=== PATIENT | male | born 1965 | race Caucasian/White ===

== ENCOUNTER 2020-08-20 12:48 | Emergency (ER) | payer MEDICAID ==
[~2020-08-20] VITALS: Ht 177.8 cm; Wt 86.4 kg
[2020-08-20 12:54] VITALS: BP 156/101
--- NOTE | 2020-08-20 12:56 | NUR ---
Patient seen and assessed by provider.
== END 2020-08-20 13:16 ==
LOC: ER 12:49
DX: F10.129 Alcohol abuse with intoxication, unspecified (principal); Z72.89 Other problems related to lifestyle; Z88.1 Allergy status to other antibiotic agents; Z88.8 Allergy status to other drugs, medicaments and biological substances; V89.2XXA Person injured in unspecified motor-vehicle accident, traffic, initial encounter; Y93.89 Activity, other specified; Y92.89 Other specified places as the place of occurrence of the external cause; Y99.8 Other external cause status; Y90.9 Presence of alcohol in blood, level not specified
CPT/HCPCS: 99283

== ENCOUNTER 2020-08-28 16:07 | Emergency (ER) | payer MEDICAID ==
[~2020-08-28] VITALS: Ht 177.8 cm; Wt 81.8 kg
[2020-08-28 16:12] VITALS: BP 121/83
[2020-08-28] MEDS ORDERED: HYDR-3972 PO (16:40)
== END 2020-08-28 16:51 | disposition home or self-care (01) ==
LOC: ER 16:07
DX: M75.32 Calcific tendinitis of left shoulder (principal); M25.512 Pain in left shoulder; E78.00 Pure hypercholesterolemia, unspecified; G89.29 Other chronic pain; F32.9 Major depressive disorder, single episode, unspecified; Z72.89 Other problems related to lifestyle; Z88.1 Allergy status to other antibiotic agents; Z88.8 Allergy status to other drugs, medicaments and biological substances; Z79.899 Other long term (current) drug therapy
CPT/HCPCS: 73030; 99283

== ENCOUNTER 2021-01-13 15:07 | Emergency (ER) | payer MEDICAID ==
[~2021-01-13] VITALS: Ht 177.8 cm; Wt 84.6 kg
[2021-01-13 15:28] VITALS: BP 150/98
== END 2021-01-13 17:44 | disposition home or self-care (01) ==
LOC: ER 15:07
DX: J06.9 Acute upper respiratory infection, unspecified (principal); E78.00 Pure hypercholesterolemia, unspecified; G89.29 Other chronic pain; Z72.89 Other problems related to lifestyle; Z86.16 Personal history of COVID-19; Z88.8 Allergy status to other drugs, medicaments and biological substances; Z88.1 Allergy status to other antibiotic agents
CPT/HCPCS: 87081; 87880; 99283

== ENCOUNTER 2021-04-02 13:03 | Emergency (ER) | payer MEDICAID ==
[~2021-04-02] VITALS: Ht 177.8 cm; Wt 81.8 kg
[2021-04-02 13:20] VITALS: BP 99/62
[2021-04-02] MEDS ORDERED: CEPH-585 PO (13:40)
== END 2021-04-02 13:57 ==
LOC: ER 13:04
DX: S01.511A Laceration without foreign body of lip, initial encounter (principal); E78.00 Pure hypercholesterolemia, unspecified; G89.29 Other chronic pain; F32.9 Major depressive disorder, single episode, unspecified; Z72.89 Other problems related to lifestyle; Z88.8 Allergy status to other drugs, medicaments and biological substances; Z88.1 Allergy status to other antibiotic agents; Z79.2 Long term (current) use of antibiotics; X58.XXXA Exposure to other specified factors, initial encounter; Y93.89 Activity, other specified; Y92.89 Other specified places as the place of occurrence of the external cause; Y99.8 Other external cause status
CPT/HCPCS: 99283

== ENCOUNTER 2021-04-02 15:07 | Emergency (ER) | payer MEDICAID ==
[~2021-04-02] VITALS: Ht 177.8 cm; Wt 81.8 kg
[~2021-04-02 15:07] MED LIST: CEPH-585 PO
[2021-04-02 15:29] VITALS: BP 122/72
[2021-04-02 15:57] LABS: BASOPHILS % (AUTO) 0.3 % (0-1); EOSINOPHILS % (AUTO) 0.1 % (0-6); HEMATOCRIT 45.4 % (42.0-52.0); HEMOGLOBIN 15.5 g/dl (14.0-17.9); LYMPHOCYTES # (AUTO) 0.9 X10'3 (1.1-4.8); LYMPHOCYTES % (AUTO) 10.3 % (21-51); MEAN CORPUSCULAR HEMOGLOBIN 35.3 PG (27.0-31.0); MEAN CORPUSCULAR HGB CONC 34.2 g/dL (33.0-36.5); MEAN CORPUSCULAR VOLUME 103.1 FL (78-98); MONOCYTES # (AUTO) 0.8 X10'3 (0-0.9); MONOCYTES % (AUTO) 8.4 % (2-12); NEUTROPHILS # (AUTO) 7.3 X10'3 (1.8-7.7); NEUTROPHILS % (AUTO) 80.9 % (42-75); PLATELET COUNT 193 X10'3 (140-440); RED CELL DISTRIBUTION WIDTH 15.6 % (11.5-14.5)
[2021-04-02 16:05] LABS: ALBUMIN 3.9 G/DL (3.4-5.0); ALBUMIN/GLOBULIN RATIO 1.1 (1.1-1.5); ANION GAP 19 (8-16); ASPARTATE AMINO TRANSFERASE 74 U/L (10-37); BILIRUBIN,TOTAL 0.8 MG/DL (0.1-1.0); BLOOD UREA NITROGEN 23 MG/DL (7-18); BUN/CREATININE RATIO 9.8 (5.4-32.0); CHLORIDE 105 MMOL/L (99-107); CREATININE 2.34 MG/DL (0.60-1.10); GLUCOSE 55 MG/DL (70-104); POTASSIUM 5.2 MMOL/L (3.5-5.1); SODIUM 143 MMOL/L (135-145); TOTAL PROTEIN 7.3 G/DL (6.4-8.2); eGFR 29 ML/MIN
[2021-04-02 16:06] LABS: ALANINE AMINOTRANSFERASE 50 U/L (12-78); ALKALINE PHOSPHATASE 167 IU/L (46-116)
== END 2021-04-02 16:41 | disposition home or self-care (01) ==
LOC: ER 15:08
DX: N18.9 Chronic kidney disease, unspecified (principal); R07.81 Pleurodynia; G89.29 Other chronic pain; E78.00 Pure hypercholesterolemia, unspecified; F32.9 Major depressive disorder, single episode, unspecified; Z72.89 Other problems related to lifestyle; Z88.8 Allergy status to other drugs, medicaments and biological substances; Z88.1 Allergy status to other antibiotic agents; Z79.2 Long term (current) use of antibiotics
CPT/HCPCS: 36415; 71045; 80053; 84145; 85025; 99284

== ENCOUNTER 2021-06-30 18:11 | Inpatient (IN) | payer MEDICAID ==
[~2021-06-30] VITALS: Ht 177.8 cm; Wt 79.5 kg
[2021-06-30] MEDS ORDERED: metoprolol tartrate 1mg/ml inj IV ONE (18:25)
[2021-06-30 18:50] LABS: BASOPHILS % (AUTO) 0.4 % (0-1); EOSINOPHILS % (AUTO) 0.8 % (0-6); HEMATOCRIT 41.4 % (42.0-52.0); HEMOGLOBIN 13.9 g/dl (14.0-17.9); LYMPHOCYTES # (AUTO) 0.3 X10'3 (1.1-4.8); LYMPHOCYTES % (AUTO) 6.1 % (21-51); MEAN CORPUSCULAR HGB CONC 33.6 g/dL (33.0-36.5); MEAN CORPUSCULAR VOLUME 104.2 FL (78-98); MEAN PLATELET VOLUME 7.7 FL (7.4-10.4); MONOCYTES # (AUTO) 0.6 X10'3 (0-0.9); MONOCYTES % (AUTO) 10.6 % (2-12); NEUTROPHILS # (AUTO) 4.5 X10'3 (1.8-7.7); NEUTROPHILS % (AUTO) 82.1 % (42-75); PLATELET COUNT 148 X10'3 (140-440); RED BLOOD COUNT 3.97 X10'6 (4.70-6.10); RED CELL DISTRIBUTION WIDTH 13.7 % (11.5-14.5); WHITE BLOOD COUNT 5.5 X10'3 (4.5-11.0)
--- NOTE | 2021-06-30 18:51 | NUR ---
CALLED PHARMACY WE ARE OUT OF STOCK ON LOPRESSOR IV. THEY WILL FILL OUT MEDICATION AND BRING IT TO ED.
[2021-06-30 19:13] LABS: ALANINE AMINOTRANSFERASE 45 U/L (12-78); ALBUMIN 3.3 G/DL (3.4-5.0); ALBUMIN/GLOBULIN RATIO 1.1 (1.1-1.5); ANION GAP 7 (8-16); ASPARTATE AMINO TRANSFERASE 62 U/L (10-37); BILIRUBIN,TOTAL 0.5 MG/DL (0.1-1.0); BLOOD UREA NITROGEN 13 MG/DL (7-18); BUN/CREATININE RATIO 9.5 (5.4-32.0); CALCIUM 8.7 MG/DL (8.5-10.1); CHLORIDE 111 MMOL/L (99-107); CREATININE 1.37 MG/DL (0.60-1.10); GLUCOSE 123 MG/DL (70-104); POTASSIUM 3.1 MMOL/L (3.5-5.1); SODIUM 143 MMOL/L (135-145); TOTAL CARBON DIOXIDE 25.5 MMOL/L (24-32); TOTAL PROTEIN 6.4 G/DL (6.4-8.2); eGFR 54 ML/MIN
[2021-06-30] MEDS ORDERED: POTASSIUM BICARB 20meq eff tab 20 MEQ TABLET.EFF PO ONE ×2 (19:25→20:25)
[2021-06-30] MEDS ORDERED: normal saline 1000ML IV soln IV ONE (19:25)
[2021-06-30] MEDS ORDERED: potassium Cl 10 mEq/100mL bag IV ONE (19:25)
[2021-06-30] MEDS ORDERED: iohexol 350MG/ML 100ml bottle IV ONE (19:26)
[2021-06-30] MEDS ORDERED: magnesium 2GM in 50ml NS 50 ML IV PRN (20:10)
[2021-06-30] MEDS ORDERED: potassium Cl 20 mEq SR tablet PO PRN ×2 (20:10)
[2021-06-30] MEDS ORDERED: nitroGLYCERIN 0.4mg SUBLingual tab SL PRN (20:10)
[2021-06-30] MEDS ORDERED: magnesium 4gm in 100ml NS 100 ML IV PRN (20:10)
[2021-06-30] MEDS ORDERED: magnesium Cl slow-release 64mg tablet PO PRN (20:10)
[2021-06-30] MEDS ORDERED: regadenoson 0.4mg/5ml syringe IV PRN (20:10)
[2021-06-30] MEDS ORDERED: potassium CL 10mEq/100ml bag 100 ML IV PRN (20:10)
[2021-06-30] MEDS ORDERED: PERFLUTREN PROTEIN-A MICROSPHR (Optison) 0.22 MG/ML 3ML VIAL IV ONE (20:10)
[2021-06-30] MEDS ORDERED: lisinopril 10 MG tablet PO ONE (20:10)
[2021-06-30] MEDS ORDERED: metoprolol tartrate 1mg/ml inj IV PRN (20:10)
[2021-06-30] MEDS ORDERED: ondansetron/PF 4mg/2ml inj IV PRN (20:10)
[2021-06-30] MEDS ORDERED: aminophylline 250mg/10ml inj. IV PRN (20:10)
[2021-06-30 20:53] LABS: POTASSIUM 3.9 MMOL/L (3.5-5.1)
--- NOTE | 2021-06-30 20:58 | NUR ---
REPORTED CRITICAL TROPONIN VALUE TO DR WITT, DR WITT ORDERED A STAT EKG AND NEW MEDS. HE WILL PUT IN ORDERS FOR MEDS. YEHUDA IS CURRENTLY DOING EKG.
[2021-06-30] MEDS ORDERED: heparin 10,000 units/1 ML INJ IV ONE (21:00)
[2021-06-30] MEDS ORDERED: heparin 25,000 UNIT/250ml bag 250 ML IV SCH (21:00)
[2021-06-30] MEDS ORDERED: heparin 10,000 units/1 ML INJ IV PRN ×2 (21:00→21:10)
[2021-06-30] MEDS ORDERED: diltiazem-NS 100mg/100ml 100 ML IV ONE (21:15)
[2021-06-30] MEDS ORDERED: diltiazem 5mg/ml 5ml inj. IV ONE (21:15)
[2021-06-30 21:21] LABS: APTT 23 SECONDS (22-32)
[2021-06-30] MEDS: metoprolol tartrate 1mg/ml inj IV SCH ×4 (21:30→23:46)
--- NOTE | 2021-06-30 22:30 | NUR ---
SPOKE TO DR WITT PT'S HEART RATE IS IMPROVED WITH DILTIAZEM. HE HAVE VERBAL ORDER TO DC AMIODARONE MEDICATION.
[2021-06-30] MEDS ORDERED: amiodarone in dextrose, iso-osm 150mg/100ml bag IV ONE (22:35)
[2021-06-30] MEDS ORDERED: amiodarone 150mg/dext, iso-os 100 ML IV ONE (22:35)
[2021-06-30] MEDS ORDERED: amiodarone/D5 360MG/200ML BAG 200 ML IV SCH (22:35)
[2021-06-30] MEDS ORDERED: VENL75CA61 PO (22:37)
[2021-06-30] MEDS ORDERED: CHOL20003 PO (22:37)
[2021-06-30] MEDS ORDERED: VENL150C58 PO (22:37)
[2021-06-30] MEDS ORDERED: TOPI50TA24 PO (22:37)
[2021-06-30] MEDS ORDERED: IBUP-1985 PO (22:37)
[2021-06-30] MEDS ORDERED: HYDR-3927 PO (22:37)
[2021-06-30] MEDS ORDERED: PROP40TA72 PO (22:37)
[2021-06-30] MEDS ORDERED: NALT50TA PO (22:37)
[2021-06-30] MEDS ORDERED: amiodarone 450 MG in Dext 5% 250ml IV soln IV SCH (22:45)
[2021-07-01] MEDS: metoprolol succinate 25mg (24-HOUR) SR. Tablet PO SCH ×2 (00:10→12:55)
[2021-07-01] MEDS: temazepam 15mg capsule PO PRN (00:10)
[2021-07-01 01:55] VITALS: BP 147/99
[2021-07-01 02:30] VITALS: BP 147/90
[2021-07-01] MEDS: acetaminophen 325mg tablet PO PRN ×2 (03:09→17:07)
[2021-07-01 06:00] VITALS: BP 136/89
[2021-07-01] MEDS ORDERED: amiodarone 450 MG in Dext 5% 250ml IV soln IV SCH (06:00)
[2021-07-01 07:17] LABS: BASOPHILS % (AUTO) 0.8 % (0-1); EOSINOPHILS # (AUTO) 0.1 X10'3 (0-0.9); EOSINOPHILS % (AUTO) 2.8 % (0-6); HEMATOCRIT 38.4 % (42.0-52.0); LYMPHOCYTES # (AUTO) 0.9 X10'3 (1.1-4.8); LYMPHOCYTES % (AUTO) 24.7 % (21-51); MEAN CORPUSCULAR HEMOGLOBIN 35.3 PG (27.0-31.0); MEAN CORPUSCULAR HGB CONC 33.7 g/dL (33.0-36.5); MEAN CORPUSCULAR VOLUME 104.8 FL (78-98); MEAN PLATELET VOLUME 7.9 FL (7.4-10.4); MONOCYTES # (AUTO) 0.5 X10'3 (0-0.9); MONOCYTES % (AUTO) 13.1 % (2-12); NEUTROPHILS # (AUTO) 2.1 X10'3 (1.8-7.7); NEUTROPHILS % (AUTO) 58.6 % (42-75); PLATELET COUNT 130 X10'3 (140-440); RED BLOOD COUNT 3.67 X10'6 (4.70-6.10); RED CELL DISTRIBUTION WIDTH 13.5 % (11.5-14.5); WHITE BLOOD COUNT 3.6 X10'3 (4.5-11.0)
[2021-07-01 07:58] LABS: ALBUMIN 3.1 G/DL (3.4-5.0); ANION GAP 8 (8-16); BLOOD UREA NITROGEN 12 MG/DL (7-18); BUN/CREATININE RATIO 10.6 (5.4-32.0); CALCIUM 8.3 MG/DL (8.5-10.1); CHLORIDE 113 MMOL/L (99-107); CHOL/HDL RATIO 2.4 (0.00-4.99); CHOLESTEROL 169 MG/DL (0-200); CREATININE 1.13 MG/DL (0.60-1.10); GLUCOSE 74 MG/DL (70-104); HDL CHOLESTEROL 69 MG/DL (35-60); LDL CHOLESTEROL 77 MG/DL (50-100); POTASSIUM 4.1 MMOL/L (3.5-5.1); SODIUM 143 MMOL/L (135-145); TRIGLYCERIDES 35 MG/DL (20-135); eGFR 67 ML/MIN
[2021-07-01] MEDS: K and/or MAG REPLACEMENT MC SCH ×2 (08:00→20:00)
[2021-07-01] MEDS: hydrALAZINE 20mg/ml inj. IV SCH ×3 (08:29→21:02)
[2021-07-01] MEDS ORDERED: hydrOXYzine 25 MG tablet PO PRN (10:05)
[2021-07-01 11:00] VITALS: BP_SYST 103; BP_SYST 153; BP_DIAS 100; BP_DIAS 76
[2021-07-01] MEDS: docusate sod 100mg capsule PO SCH ×2 (12:55→20:00)
[2021-07-01] MEDS: venlafaxine XR 75mg capsule (Q24H) PO SCH (15:42)
--- NOTE | 2021-07-01 16:54 | NUR ---
heparin drip stopped for cardiac cath. to be done within the hour
[2021-07-01] MEDS ORDERED: LIDOcaine/PRILOcaine 5gm cream TP ONE (17:00)
[2021-07-01 17:04] LABS: APTT 35 SECONDS (22-32)
--- NOTE | 2021-07-01 17:51 | NUR ---
Mr Estrada has been assessed as indicated. He has been noted to be both pleasant and cooperative. He has successfully been treated for a headache x1. He completed the resting portion of stress test. He is slated to complete the exercise portion tomorrow. He has been on Cardizem gtt as well as heparin gtt. the heparin was found to be therapeutic with the 1st check this shift. It has been stopped at this time in preperation for a cardiac cath that he will have this evening. Dr Morales saw him at the bedside and stated that he will access his wrist area, He has been prepped for the procedure. The bag of IV NS has been prepped and ready. he will continue to be monitored.
[2021-07-01 18:00] VITALS: BP 124/83
--- NOTE | 2021-07-01 18:15 | NUR ---
Problems reprioritized. Patient report given, questions answered & plan of care reviewed with ALEKSANDR MEDELLIN.
[2021-07-01] MEDS ORDERED: verapamil 2.5 mg/ml inj IV ONE (18:32)
[2021-07-01] MEDS ORDERED: nitroGLYCERIN-Tridil 50MG/D5W 250 ML IV ONE (18:32)
[2021-07-01] MEDS ORDERED: midazolam 1 mg/ML 2ml injection ONE (18:33)
[2021-07-01] MEDS ORDERED: heparin 1,000unit/ml 10ml vial 10 ML ONE (18:33)
[2021-07-01] MEDS ORDERED: fentaNYL/PF 50MCG/1 ML 2ML syringe ONE (18:33)
[2021-07-01] MEDS ORDERED: iohexol 350MG/ML 100ml bottle IV ONE (18:34)
[2021-07-01] MEDS ORDERED: LIDOcaine 1% (10mg/ml)w/preservative injection 20ml MDV ONE (18:34)
[2021-07-01] MEDS: topiramate 25mg tablet PO SCH (20:57)
[2021-07-01] MEDS: propranolol 40mg tablet PO SCH (20:58)
[2021-07-01 22:00] VITALS: BP 124/93
[2021-07-02 02:00] VITALS: BP 118/82
[2021-07-02] MEDS: hydrALAZINE 20mg/ml inj. IV SCH ×2 (02:00→08:54)
[2021-07-02] MEDS: acetaminophen 325mg tablet PO PRN ×2 (03:32→19:25)
[2021-07-02 06:00] VITALS: BP 142/99
[2021-07-02 07:16] LABS: EOSINOPHILS # (AUTO) 0.1 X10'3 (0-0.9); EOSINOPHILS % (AUTO) 2.7 % (0-6); HEMATOCRIT 38.7 % (42.0-52.0); HEMOGLOBIN 13.2 g/dl (14.0-17.9); LYMPHOCYTES # (AUTO) 0.6 X10'3 (1.1-4.8); LYMPHOCYTES % (AUTO) 18.1 % (21-51); MEAN CORPUSCULAR HEMOGLOBIN 35.9 PG (27.0-31.0); MEAN CORPUSCULAR VOLUME 105.6 FL (78-98); MEAN PLATELET VOLUME 7.8 FL (7.4-10.4); MONOCYTES # (AUTO) 0.4 X10'3 (0-0.9); MONOCYTES % (AUTO) 12.5 % (2-12); NEUTROPHILS # (AUTO) 2.3 X10'3 (1.8-7.7); NEUTROPHILS % (AUTO) 65.7 % (42-75); PLATELET COUNT 147 X10'3 (140-440); RED BLOOD COUNT 3.67 X10'6 (4.70-6.10); RED CELL DISTRIBUTION WIDTH 13.7 % (11.5-14.5); WHITE BLOOD COUNT 3.5 X10'3 (4.5-11.0)
[2021-07-02 07:47] LABS: ALBUMIN 3.2 G/DL (3.4-5.0); ANION GAP 9 (8-16); BLOOD UREA NITROGEN 11 MG/DL (7-18); CALCIUM 8.6 MG/DL (8.5-10.1); CHLORIDE 112 MMOL/L (99-107); CREATININE 0.92 MG/DL (0.60-1.10); GLUCOSE 84 MG/DL (70-104); SODIUM 141 MMOL/L (135-145); eGFR 85 ML/MIN
[2021-07-02] MEDS: docusate sod 100mg capsule PO SCH ×2 (08:00→19:21)
[2021-07-02] MEDS: K and/or MAG REPLACEMENT MC SCH ×2 (08:00→19:18)
[2021-07-02] MEDS ORDERED: venlafaxine XR 75mg capsule (Q24H) PO SCH (08:00)
[2021-07-02] MEDS: venlafaxine XR 75mg capsule (Q24H) PO SCH (08:54)
[2021-07-02] MEDS: naltrexone 50mg tablet PO SCH (08:54)
[2021-07-02] MEDS: topiramate 25mg tablet PO SCH ×2 (08:54→19:21)
[2021-07-02] MEDS: propranolol 40mg tablet PO SCH ×2 (08:55→19:22)
[2021-07-02] MEDS: diltiazem 30mg tablet PO SCH ×3 (10:49→19:22)
[2021-07-02 11:00] VITALS: BP 125/90
[2021-07-02 15:00] VITALS: BP 120/76
--- NOTE | 2021-07-02 17:53 | NUR ---
Mr Naqvi has been assessed as indicated. He has been noted to be both pleasant and cooperative. He continues to deny pain. he does c/o constipation at this time. Cardizem drip has been stopped and he has been transitioned to PO. The stress test was cancelled. The area to his right wrist that was used for cardiac cath access has no redness swelling or tenderness. He has no s/s of distress or discomfort.
[2021-07-02 18:00] VITALS: BP 133/96
[2021-07-02] MEDS ORDERED: magnesium hydroxide 30ml (MOM) UD suspension PO ONE (18:20)
--- NOTE | 2021-07-02 18:30 | NUR ---
Problems reprioritized. Patient report given, questions answered & plan of care reviewed with DARLEEN .
[2021-07-02] MEDS: temazepam 15mg capsule PO PRN (19:21)
[2021-07-02 22:00] VITALS: BP 133/85
[2021-07-03] MEDS: diltiazem 30mg tablet PO SCH ×2 (02:35→08:59)
[2021-07-03 06:00] VITALS: BP 132/88
[2021-07-03 07:25] LABS: BASOPHILS % (AUTO) 0.8 % (0-1); EOSINOPHILS # (AUTO) 0.1 X10'3 (0-0.9); EOSINOPHILS % (AUTO) 3.2 % (0-6); HEMATOCRIT 38.5 % (42.0-52.0); HEMOGLOBIN 13.3 g/dl (14.0-17.9); LYMPHOCYTES # (AUTO) 0.7 X10'3 (1.1-4.8); LYMPHOCYTES % (AUTO) 17.1 % (21-51); MEAN CORPUSCULAR HEMOGLOBIN 35.6 PG (27.0-31.0); MEAN CORPUSCULAR HGB CONC 34.5 g/dL (33.0-36.5); MEAN PLATELET VOLUME 7.7 FL (7.4-10.4); MONOCYTES # (AUTO) 0.6 X10'3 (0-0.9); MONOCYTES % (AUTO) 13.1 % (2-12); NEUTROPHILS # (AUTO) 2.8 X10'3 (1.8-7.7); NEUTROPHILS % (AUTO) 65.8 % (42-75); PLATELET COUNT 167 X10'3 (140-440); RED BLOOD COUNT 3.73 X10'6 (4.70-6.10); RED CELL DISTRIBUTION WIDTH 13.3 % (11.5-14.5); WHITE BLOOD COUNT 4.3 X10'3 (4.5-11.0)
[2021-07-03] MEDS: docusate sod 100mg capsule PO SCH (08:00)
[2021-07-03 08:18] LABS: ALBUMIN 3.2 G/DL (3.4-5.0); ANION GAP 8 (8-16); BLOOD UREA NITROGEN 12 MG/DL (7-18); BUN/CREATININE RATIO 11.9 (5.4-32.0); CALCIUM 8.3 MG/DL (8.5-10.1); CHLORIDE 111 MMOL/L (99-107); CREATININE 1.01 MG/DL (0.60-1.10); GLUCOSE 85 MG/DL (70-104); MAGNESIUM 2.2 MG/DL (1.5-2.4); POTASSIUM 3.9 MMOL/L (3.5-5.1); SODIUM 140 MMOL/L (135-145); TOTAL CARBON DIOXIDE 21.3 MMOL/L (24-32); eGFR 76 ML/MIN
[2021-07-03] MEDS: topiramate 25mg tablet PO SCH (08:59)
[2021-07-03] MEDS: propranolol 40mg tablet PO SCH (08:59)
[2021-07-03] MEDS: naltrexone 50mg tablet PO SCH (08:59)
[2021-07-03] MEDS ORDERED: DILT240C90 PO (09:00)
[2021-07-03] MEDS: venlafaxine XR 75mg capsule (Q24H) PO SCH (09:00)
[2021-07-03] MEDS ORDERED: ATOR10TA PO (09:00)
[2021-07-03] MEDS ORDERED: ASPI81TA52 PO (09:00)
[2021-07-03 11:00] VITALS: BP 96/60
--- NOTE | 2021-07-03 12:16 | NUR ---
Initial: Pt admit dx SOB, chest pain, NSTEMI, and ETHAN per EMR. Pt PO intake 100% x 4 heart healthy meals and meeting estimated nutrient needs. Recommend routine thiamine and folate given hx of EtOH and liberalizing to regular diet as lipid panel WNL if MD agreeable. Pending BM and given one time dose of MoM 07/02. No nutrition intervention at this time. Will continue to monitor. Addendum: 07/03/21 at 1216 by Daksha Heredia Pill Packer DEBRA Amended: Links added. Addendum: 07/03/21 at [address] I have reviewed assessment by event marketing intern
--- NOTE | 2021-07-03 15:20 | NUR ---
Mr Estrada has been assessed as indicated. he has been DC to [facility]. IV access was removed. DC instructions were reviwed all questions answered Medications sent to [facility] on [address]. He wa aware of and compliant with the plan to DC home. he had no s/s of distress or discomfort upon DC. He was picked up in a private vehicle. He was escorted to [facility] front door via WC escorted by staff
== END 2021-07-03 15:00 | disposition home or self-care (01) | DRG 190 ==
LOC: ER 18:12 → OBSVTOIN 20:13 → UNDOADMOB 20:13 → INTOOBSV 20:13 → ED HOLD 20:13 → OBSVTOIN 20:30 → PCU 3S 20:30 → ED HOLD 07-01 02:00 → PCU 3S 07-01 02:00
PROVIDERS: ADMIT Internal Medicine; ATTEND Family Medicine
PROC: B32T1ZZ Computerized Tomography (CT Scan) of Left Pulmonary Artery using Low Osmolar Contrast (ICD-10-PCS; 2021-06-30)
PROC: B3201ZZ Computerized Tomography (CT Scan) of Thoracic Aorta using Low Osmolar Contrast (ICD-10-PCS; 2021-06-30)
PROC: B32S1ZZ Computerized Tomography (CT Scan) of Right Pulmonary Artery using Low Osmolar Contrast (ICD-10-PCS; 2021-06-30)
PROC: 4A023N7 Measurement of Cardiac Sampling and Pressure, Left Heart, Percutaneous Approach (ICD-10-PCS; principal; 2021-07-01)
PROC: B2111ZZ Fluoroscopy of Multiple Coronary Arteries using Low Osmolar Contrast (ICD-10-PCS; 2021-07-01)
PROC: 4A02XM4 Measurement of Cardiac Total Activity, External Approach (ICD-10-PCS; 2021-07-02)
PROC: 3E033HZ Introduction of Radioactive Substance into Peripheral Vein, Percutaneous Approach (ICD-10-PCS; 2021-07-02)
DX: I25.10 Atherosclerotic heart disease of native coronary artery without angina pectoris (principal); I21.A1 Myocardial infarction type 2; I48.92 Unspecified atrial flutter; I48.91 Unspecified atrial fibrillation; E78.00 Pure hypercholesterolemia, unspecified; G43.909 Migraine, unspecified, not intractable, without status migrainosus; F10.20 Alcohol dependence, uncomplicated; Z20.822 Contact with and (suspected) exposure to COVID-19; Z60.2 Problems related to living alone; G89.29 Other chronic pain; R00.0 Tachycardia, unspecified; N18.9 Chronic kidney disease, unspecified; I12.9 Hypertensive chronic kidney disease with stage 1 through stage 4 chronic kidney disease, or unspecified chronic kidney disease; F31.9 Bipolar disorder, unspecified; Z79.82 Long term (current) use of aspirin; Z79.899 Other long term (current) drug therapy; Z88.8 Allergy status to other drugs, medicaments and biological substances
CPT/HCPCS: 36415; 71045; 71275; 78451; 80048; 80053; 80061; 83735; 83880; 84132; 84484; 85025; 85379; 85610; 85730; 87635; 93005; 93306; 93458; 96374; 99152; 99291; A4620; A5120; A9500; C1769; C1894; C9803; G0378; J0360; J1644; J2250; J3010; J3480; J3490; J7030; Q0177; Q9967

== ENCOUNTER 2021-09-06 12:51 | Emergency (ER) | payer MEDICAID ==
[~2021-09-06] VITALS: Ht 177.8 cm; Wt 70.0 kg
[~2021-09-06 12:51] MED LIST changes: +ATOR10TA PO; -CEPH-585 PO; +CHOL20003 PO; +DILT240C90 PO; +HYDR-3927 PO; +IBUP-1985 PO; +NALT50TA PO; +PROP40TA72 PO; +TOPI50TA24 PO; +VENL150C58 PO; +VENL75CA61 PO
[2021-09-06 13:41] LABS: EOSINOPHILS # (AUTO) 0.1 X10'3 (0-0.9); LYMPHOCYTES # (AUTO) 0.5 X10'3 (1.1-4.8); MEAN CORPUSCULAR HEMOGLOBIN 34.7 PG (27.0-31.0); MEAN CORPUSCULAR HGB CONC 34.7 g/dL (33.0-36.5); MONOCYTES # (AUTO) 0.3 X10'3 (0-0.9)
[2021-09-06 13:43] LABS: BASOPHILS % (AUTO) 0.7 % (0-1); HEMATOCRIT 41.6 % (42.0-52.0); HEMOGLOBIN 14.4 g/dl (14.0-17.9); LYMPHOCYTES % (AUTO) 9.4 % (21-51); MEAN PLATELET VOLUME 7.5 FL (7.4-10.4); MONOCYTES % (AUTO) 5.9 % (2-12); NEUTROPHILS # (AUTO) 4.8 X10'3 (1.8-7.7); PLATELET COUNT 185 X10'3 (140-440); RED BLOOD COUNT 4.16 X10'6 (4.70-6.10); RED CELL DISTRIBUTION WIDTH 13.6 % (11.5-14.5); WHITE BLOOD COUNT 5.8 X10'3 (4.5-11.0)
[2021-09-06 13:58] LABS: ALANINE AMINOTRANSFERASE 139 U/L (12-78); ALBUMIN 3.7 G/DL (3.4-5.0); ALBUMIN/GLOBULIN RATIO 1.2 (1.1-1.5); ALKALINE PHOSPHATASE 127 IU/L (46-116); ANION GAP 14 (8-16); ASPARTATE AMINO TRANSFERASE 102 U/L (10-37); BILIRUBIN,TOTAL 0.5 MG/DL (0.1-1.0); BLOOD UREA NITROGEN 18 MG/DL (7-18); BUN/CREATININE RATIO 14.5 (5.4-32.0); CALCIUM 8.5 MG/DL (8.5-10.1); CHLORIDE 109 MMOL/L (99-107); CREATININE 1.24 MG/DL (0.60-1.10); GLUCOSE 197 MG/DL (70-104); POTASSIUM 3.6 MMOL/L (3.5-5.1); SODIUM 145 MMOL/L (135-145); TOTAL CARBON DIOXIDE 22.5 MMOL/L (24-32); TOTAL PROTEIN 6.9 G/DL (6.4-8.2); eGFR 60 ML/MIN
[2021-09-06] MEDS ORDERED: normal saline 1000ML IV soln IVB ONE ×2 (16:25→18:15)
[2021-09-06] MEDS ORDERED: LORazepam 2 mg/ml vial IV ONE ×2 (16:25→18:15)
[2021-09-06] MEDS ORDERED: iohexol 350MG/ML 100ml bottle IV ONE (16:30)
--- NOTE | 2021-09-06 17:14 | NUR ---
pt to ct.
[2021-09-06] MEDS ORDERED: gabapentin 300mg capsule PO ONE (18:15)
--- NOTE | 2021-09-06 18:57 | NUR ---
Pt. pink, alert, reading a book. PIV site c/d/i s complication or adverse. IVF bolus started as ordered, infusing well without complication. Offered pt blanket, declined. Pt laying supine, bed in lowest position, wheels locked, rail 2/2 up, call hardin in reach. Offered pt po fluids, pt declined offer. Offered anything else, pt declined offer.
[2021-09-06] MEDS ORDERED: magnesium oxide 400mg tablet PO ONE (19:35)
[2021-09-06] MEDS ORDERED: thiamine 100mg tablet PO ONE (19:35)
[2021-09-06] MEDS ORDERED: phenobarbital inj 260 MG in normal saline 100ml IV soln 98 ML IV ONE (19:35)
--- NOTE | 2021-09-06 19:48 | NUR ---
Pt pink, no acute/resp distress. IV pheno ordered from pharm. PIV site c/d/i s complication or adverse. PIV flushed well with 10cc NS.
--- NOTE | 2021-09-06 21:00 | NUR ---
Pt pink, no acute/resp distress. PIV site c/d/i s complication or adverse reaction.
[2021-09-06] MEDS ORDERED: phenobarbital inj 130 MG in normal saline 100ml IV soln 100 ML IV ONE (21:10)
[2021-09-06 21:39] LABS: URINE AMPHETAMINE SCREEN NEGATIVE (Neg); URINE BARBITUATE SCREEN POSITIVE (Neg); URINE BENZODIAZEPINES SCREEN NEGATIVE (Neg); URINE CANNABINOID SCREEN NEGATIVE (Neg); URINE COCAINE SCREEN NEGATIVE (Neg); URINE METHADONE SCREEN NEGATIVE (Neg); URINE OPIATE SCREEN NEGATIVE (Neg); URINE PHENCYCLIDINE SCREEN NEGATIVE (Neg)
--- NOTE | 2021-09-06 22:20 | NUR ---
PIV site c/d/i s complication or adverse. IV med infusing well without complication. Offered pt blanket, declined. Pt laying supine, bed in lowest position, wheels locked, rail 2/2 up, call hardin in reach. Offered pt po fluids, pt declined offer. Offered anything else, pt declined offer.
--- NOTE | 2021-09-07 | NUR ---
PIV site c/d/i s complication or adverse. IV med infusing well without complication. Offered pt blanket, declined. Pt laying supine, bed in lowest position, wheels locked, rail 2/2 up, call hardin in reach
[2021-09-07] MEDS ORDERED: diltiazem 5mg/ml 5ml inj. IV ONE ×2 (00:05→00:50)
[2021-09-07] MEDS ORDERED: metoprolol succinate 25mg (24-HOUR) SR. Tablet PO ONE (00:05)
[2021-09-07] MEDS ORDERED: amiodarone 150mg/dext, iso-os 100 ML IV ONE ×2 (01:50→02:40)
--- NOTE | 2021-09-07 02:52 | NUR ---
amiodarone bolus dose given. pt heart rate initially down to 110's but rhythm is still irregular.
--- NOTE | 2021-09-07 03:56 | NUR ---
Pt agrees with d/c plan. Denies further questions. Steady pt gait. PIV removed fully intact s complication or adverse.
[2021-09-07 03:57] VITALS: BP 168/92
== END 2021-09-07 03:59 | disposition home or self-care (01) ==
LOC: ER 12:51
DX: I48.92 Unspecified atrial flutter (principal); F10.20 Alcohol dependence, uncomplicated; R06.02 Shortness of breath; E78.00 Pure hypercholesterolemia, unspecified; G89.29 Other chronic pain; F32.A Depression, unspecified; Z72.89 Other problems related to lifestyle; Z88.8 Allergy status to other drugs, medicaments and biological substances; Z88.1 Allergy status to other antibiotic agents; Z79.899 Other long term (current) drug therapy; Y90.9 Presence of alcohol in blood, level not specified
CPT/HCPCS: 36415; 71045; 71275; 80053; 80305; 83735; 83880; 84443; 84484; 85025; 93005; 96361; 96374; 96375; 96376; 99285; J0282; J2060; J2560; J3490; J7030; Q9967

== ENCOUNTER 2022-04-27 19:54 | Inpatient (IN) | payer MEDICAID ==
[~2022-04-27] VITALS: Ht 177.8 cm; Wt 86.4 kg
[2022-04-27] MEDS ORDERED: normal saline 1000ML IV soln IVB ONE (20:05)
[2022-04-27] MEDS ORDERED: folic acid 1mg/0.2ml inj IV ONE (20:05)
[2022-04-27] MEDS ORDERED: thiamine 100mg/ml 2ml inj. IV ONE (20:05)
[2022-04-27] MEDS ORDERED: haloperidol lactate 5mg/ml inj IM ONE (20:05)
[2022-04-27] MEDS ORDERED: LIDOcaine 2% 10ml TOPICAL JELLY (Urojet) TP ONE ×2 (20:25→23:05)
[2022-04-27 20:59] LABS: BASOPHILS % (AUTO) 0.7 % (0-1); EOSINOPHILS % (AUTO) 0.5 % (0-6); HEMATOCRIT 46.6 % (42.0-52.0); HEMOGLOBIN 15.7 g/dl (14.0-17.9); LYMPHOCYTES # (AUTO) 1.2 X10'3 (1.1-4.8); LYMPHOCYTES % (AUTO) 20.1 % (21-51); MEAN CORPUSCULAR HEMOGLOBIN 36.2 PG (27.0-31.0); MEAN CORPUSCULAR HGB CONC 33.6 g/dL (33.0-36.5); MEAN CORPUSCULAR VOLUME 107.5 FL (78-98); MEAN PLATELET VOLUME 6.6 FL (7.4-10.4); MONOCYTES # (AUTO) 0.2 X10'3 (0-0.9); MONOCYTES % (AUTO) 2.8 % (2-12); NEUTROPHILS # (AUTO) 4.5 X10'3 (1.8-7.7); NEUTROPHILS % (AUTO) 75.9 % (42-75); PLATELET COUNT 185 X10'3 (140-440); RED BLOOD COUNT 4.33 X10'6 (4.70-6.10); RED CELL DISTRIBUTION WIDTH 13.8 % (11.5-14.5); WHITE BLOOD COUNT 5.9 X10'3 (4.5-11.0)
--- NOTE | 2022-04-27 21:10 | NUR ---
Artic Sun and Bare Hugger placed on patient - temp 32.6
[2022-04-27 21:22] LABS: ALANINE AMINOTRANSFERASE 101 U/L (12-78); ALBUMIN 3.9 G/DL (3.4-5.0); ALBUMIN/GLOBULIN RATIO 1.1 (1.1-1.5); ALKALINE PHOSPHATASE 236 IU/L (46-116); ASPARTATE AMINO TRANSFERASE 121 U/L (10-37); BLOOD UREA NITROGEN 16 MG/DL (7-18); BUN/CREATININE RATIO 12.2 (5.4-32.0); CALCIUM 8.4 MG/DL (8.5-10.1); CREATINE KINASE 468 U/L (39-308); CREATININE 1.31 MG/DL (0.60-1.10); GLUCOSE 98 MG/DL (70-104); TOTAL CARBON DIOXIDE 19.8 MMOL/L (24-32); TOTAL PROTEIN 7.6 G/DL (6.4-8.2); eGFR 56 ML/MIN
[2022-04-27 21:35] LABS: CLARITY,URINE CLEAR (Clear); COLOR,URINE YELLOW (Yellow); GLUCOSE, URINE NEGATIVE (Neg); KETONES,URINE 15 mg/dl (Neg); LEUKOCYTE ESTERASE ,URINE NEGATIVE (Neg); NITRITES, URINE NEGATIVE (Neg); OCCULT BLOOD,URINE NEGATIVE (Neg); PROTEIN,URINE NEGATIVE (Neg)
[2022-04-27 21:40] LABS: UA COLLECTION TYPE FOLEY CATH
[2022-04-27 21:40] LABS: ANION GAP 18 (8-16); CHLORIDE 103 MMOL/L (99-107); POTASSIUM 4.5 MMOL/L (3.5-5.1); SODIUM 141 MMOL/L (135-145)
[2022-04-27 21:43] LABS: URINE AMPHETAMINE SCREEN NEGATIVE (Neg); URINE BARBITUATE SCREEN NEGATIVE (Neg); URINE BENZODIAZEPINES SCREEN NEGATIVE (Neg); URINE CANNABINOID SCREEN NEGATIVE (Neg); URINE COCAINE SCREEN NEGATIVE (Neg); URINE METHADONE SCREEN NEGATIVE (Neg); URINE OPIATE SCREEN NEGATIVE (Neg); URINE PHENCYCLIDINE SCREEN NEGATIVE (Neg)
[2022-04-27 21:43] LABS: ETHANOL 0.545 GM/DL (0.0-0.010)
[2022-04-27] MEDS ORDERED: LORazepam 2 mg/ml vial IV ONE (22:50)
[2022-04-27] MEDS ORDERED: acetaminophen 325mg tablet PO PRN (23:05)
[2022-04-27] MEDS ORDERED: dextrose 50%-water 50ml dispensing syringe IV PRN (23:05)
[2022-04-27] MEDS ORDERED: sodium phosphate inj. 15 MMOL in dextrose 5%-water 250 ML IV PRN (23:05)
[2022-04-27] MEDS ORDERED: magnesium 2GM in 50ml NS 50 ML IV PRN (23:05)
[2022-04-27] MEDS ORDERED: sodium phosphate inj. 30 MMOL in dextrose 5%-water 250 ML IV PRN (23:05)
[2022-04-27] MEDS ORDERED: haloperidol 5mg tablet PO PRN (23:05)
[2022-04-27] MEDS ORDERED: magnesium 4gm in 100ml NS 100 ML IV PRN (23:05)
[2022-04-27] MEDS ORDERED: magnesium hydroxide 30ml (MOM) UD suspension PO PRN (23:05)
[2022-04-27] MEDS ORDERED: Neutra Phos packet PO PRN (23:05)
[2022-04-27 23:17] LABS: ALANINE AMINOTRANSFERASE 95 U/L (12-78); ALBUMIN 3.6 G/DL (3.4-5.0); ALKALINE PHOSPHATASE 226 IU/L (46-116); ANION GAP 18 (8-16); ASPARTATE AMINO TRANSFERASE 120 U/L (10-37); BILIRUBIN,TOTAL 1.1 MG/DL (0.1-1.0); BLOOD UREA NITROGEN 15 MG/DL (7-18); BUN/CREATININE RATIO 12.5 (5.4-32.0); CALCIUM 7.7 MG/DL (8.5-10.1); CHLORIDE 107 MMOL/L (99-107); GLUCOSE 95 MG/DL (70-104); MAGNESIUM 2.2 MG/DL (1.5-2.4); PHOSPHORUS 3.9 MG/DL (2.3-4.5); POTASSIUM 4.1 MMOL/L (3.5-5.1); SODIUM 142 MMOL/L (135-145); TOTAL CARBON DIOXIDE 17.4 MMOL/L (24-32); TOTAL PROTEIN 7.2 G/DL (6.4-8.2); eGFR 62 ML/MIN
[2022-04-27 23:31] LABS: APTT 32 SECONDS (22-32)
[2022-04-27 23:38] LABS: BASOPHILS % (AUTO) 0.3 % (0-1); EOSINOPHILS % (AUTO) 0.1 % (0-6); HEMATOCRIT 44.9 % (42.0-52.0); HEMOGLOBIN 15.1 g/dl (14.0-17.9); LYMPHOCYTES # (AUTO) 0.6 X10'3 (1.1-4.8); LYMPHOCYTES % (AUTO) 11.4 % (21-51); MEAN CORPUSCULAR HEMOGLOBIN 36.4 PG (27.0-31.0); MEAN CORPUSCULAR HGB CONC 33.6 g/dL (33.0-36.5); MEAN CORPUSCULAR VOLUME 108.5 FL (78-98); MEAN PLATELET VOLUME 7.2 FL (7.4-10.4); MONOCYTES # (AUTO) 0.1 X10'3 (0-0.9); MONOCYTES % (AUTO) 2.1 % (2-12); NEUTROPHILS # (AUTO) 4.3 X10'3 (1.8-7.7); NEUTROPHILS % (AUTO) 86.1 % (42-75); PLATELET COUNT 166 X10'3 (140-440); RED BLOOD COUNT 4.14 X10'6 (4.70-6.10)
[2022-04-28] MEDS: ringers solution, lacted 1,000 ML IV SCH ×2 (00:08→08:39)
--- NOTE | 2022-04-28 01:39 | NUR ---
Behavioral restraints removed at 0050. Patient continues to pull at IV lines and Tripp. Order recvd to place non-behavioral restraints per Software Applications Designer.
[2022-04-28] MEDS: LORazepam 2 mg/ml vial IV PRN ×11 (02:48→23:45)
--- NOTE | 2022-04-28 06:10 | NUR ---
Artic Sun removed - Bear Hugger still on patient.
[2022-04-28] MEDS: thiamine 100mg/ml 2ml inj. IV SCH ×3 (07:38→21:38)
[2022-04-28] MEDS: folic acid 1mg/0.2ml inj IV SCH (08:29)
[2022-04-28] MEDS: K and/or MAG REPLACEMENT MC SCH (09:00)
[2022-04-28 09:18] LABS: RED BLOOD COUNT 3.84 X10'6 (4.70-6.10); WHITE BLOOD COUNT 10.9 X10'3 (4.5-11.0)
[2022-04-28 09:19] LABS: BASOPHILS % (AUTO) 0.3 % (0-1); EOSINOPHILS % (AUTO) 0 % (0-6); HEMATOCRIT 43.4 % (42.0-52.0); HEMOGLOBIN 13.8 g/dl (14.0-17.9); LYMPHOCYTES % (AUTO) 4.5 % (21-51); MEAN CORPUSCULAR HEMOGLOBIN 36.1 PG (27.0-31.0); MEAN CORPUSCULAR HGB CONC 31.9 g/dL (33.0-36.5); MEAN CORPUSCULAR VOLUME 113.2 FL (78-98); MEAN PLATELET VOLUME 6.6 FL (7.4-10.4); MONOCYTES % (AUTO) 9.3 % (2-12); NEUTROPHILS % (AUTO) 85.9 % (42-75); PLATELET COUNT 112 X10'3 (140-440); RED CELL DISTRIBUTION WIDTH 14.1 % (11.5-14.5)
[2022-04-28 09:20] LABS: LYMPHOCYTES # (AUTO) 0.5 X10'3 (1.1-4.8); NEUTROPHILS # (AUTO) 9.4 X10'3 (1.8-7.7)
[2022-04-28 09:47] LABS: ALANINE AMINOTRANSFERASE 96 U/L (12-78); ALBUMIN 2.7 G/DL (3.4-5.0); ALBUMIN/GLOBULIN RATIO 0.8 (1.1-1.5); ALKALINE PHOSPHATASE 179 IU/L (46-116); ASPARTATE AMINO TRANSFERASE 168 U/L (10-37); BLOOD UREA NITROGEN 18 MG/DL (7-18); BUN/CREATININE RATIO 14.5 (5.4-32.0); CALCIUM 7.2 MG/DL (8.5-10.1); CHLORIDE 106 MMOL/L (99-107); CREATINE KINASE 731 U/L (39-308); CREATININE 1.24 MG/DL (0.60-1.10); GLUCOSE 82 MG/DL (70-104); MAGNESIUM 2.3 MG/DL (1.5-2.4); PHOSPHORUS 4.6 MG/DL (2.3-4.5); POTASSIUM 4.4 MMOL/L (3.5-5.1); SODIUM 139 MMOL/L (135-145); eGFR 60 ML/MIN
[2022-04-28 10:16] LABS: PLATELET ESTIMATE DECREASED
[2022-04-28 10:24] LABS: BILIRUBIN,TOTAL 1.1 MG/DL (0.1-1.0)
[2022-04-28 10:32] LABS: ANION GAP 22 (8-16); TOTAL CARBON DIOXIDE 10.6 MMOL/L (24-32)
--- NOTE | 2022-04-28 11:36 | NUR ---
Dr. Pop notified of pt CO2 10.6. Orders received for lactic acid level, ABG, procalcitonin STAT draw. Dr. Pop to consult with Dr. Clark. Pt temperature WNL Aman Hugger removed.
[2022-04-28 12:30] LABS: ABG BASE EXCESS -13.6 mmol/L (-2.0-2.0); ABG HCO3 13.3 mmol/L (22.0-26.0); ABG OXYGEN SATURATION 91.5 % (94-97); ABG PCO2 (T) 35.7 mmHg (35.0-48.0); ABG PO2 (T) 74.8 mmHg (75.0-100.0); ALLEN'S TEST POSITIVE; FCOHb 0.6 % (0.0-3.9); FLOW 3 L/min; FMetHb 0.4 % (0.0-1.5); FO2Hb 90.6 % (94-97); PATIENT TEMPERATURE 37.7; TOTAL HEMOGLOBIN 13.8 G/dl (14.0-17.9)
[2022-04-28] MEDS: haloperidol lactate 5mg/ml inj IM PRN ×3 (13:31→23:45)
--- NOTE | 2022-04-28 14:30 | NUR ---
DR CHILDRESS AT BEDSIDE. DISCUSSION WITH THIS RN ABOUT DOWNGRADING PT TO PCU
[2022-04-28] MEDS ORDERED: sodium bicarbonate (8.4%) inj. 150 MEQ in dextrose 5%-water 1,000 ML IV SCH (16:25)
[2022-04-28] MEDS ORDERED: WATER IV SCH (16:52)
[2022-04-28] MEDS ORDERED: DEXTROSE 10% IV SCH (16:52)
[2022-04-28] MEDS ORDERED: SODIUM BICARBONATE IV SCH (16:52)
--- NOTE | 2022-04-28 17:10 | NUR ---
DR GOMEZ AT BEDSIDE. DISCUSSED PT ELEVATED TEMP, ORDERS RECEIVED FOR RECTAL TYLENOL. PT INCREASINGLY AGITATED DESPITE Q1 ATIVAN AND Q4 HALDOL. OKAYED GIVING NEXT DOSE OF IM HALDOL NOW.
[2022-04-28] MEDS: sodium bicarbonate (8.4%) inj. 150 MEQ in dextrose 5%-water 850 ML IV SCH ×2 (17:12→23:03)
[2022-04-28] MEDS ORDERED: acetaminophen 120MG suppository, rectal RC ONE (17:15)
[2022-04-28] MEDS ORDERED: acetaminophen 650mg rectal suppository RC ONE (17:20)
[2022-04-28 17:31] LABS: ALANINE AMINOTRANSFERASE 114 U/L (12-78); ALBUMIN 2.9 G/DL (3.4-5.0); ALBUMIN/GLOBULIN RATIO 0.9 (1.1-1.5); ALKALINE PHOSPHATASE 175 IU/L (46-116); ANION GAP 17 (8-16); ASPARTATE AMINO TRANSFERASE 192 U/L (10-37); BILIRUBIN,TOTAL 0.9 MG/DL (0.1-1.0); BLOOD UREA NITROGEN 16 MG/DL (7-18); BUN/CREATININE RATIO 12.6 (5.4-32.0); CALCIUM 7.4 MG/DL (8.5-10.1); CHLORIDE 108 MMOL/L (99-107); CREATININE 1.27 MG/DL (0.60-1.10); GLUCOSE 89 MG/DL (70-104); POTASSIUM 4.4 MMOL/L (3.5-5.1); SODIUM 143 MMOL/L (135-145); TOTAL CARBON DIOXIDE 18.2 MMOL/L (24-32); eGFR 58 ML/MIN
[2022-04-28 23:30] VITALS: BP 129/65
[2022-04-29] MEDS: LORazepam 2 mg/ml vial IV PRN ×7 (01:09→21:21)
[2022-04-29 02:18] VITALS: BP 152/78
[2022-04-29] MEDS: haloperidol lactate 5mg/ml inj IM PRN ×2 (03:30→07:40)
[2022-04-29 06:00] VITALS: BP 153/85
[2022-04-29 06:59] LABS: BASOPHILS % (AUTO) 0.1 % (0-1); EOSINOPHILS % (AUTO) 0.1 % (0-6); HEMATOCRIT 33.8 % (42.0-52.0); HEMOGLOBIN 11.8 g/dl (14.0-17.9); LYMPHOCYTES # (AUTO) 0.2 X10'3 (1.1-4.8); LYMPHOCYTES % (AUTO) 4.7 % (21-51); MEAN CORPUSCULAR HEMOGLOBIN 36.6 PG (27.0-31.0); MEAN CORPUSCULAR HGB CONC 34.8 g/dL (33.0-36.5); MEAN PLATELET VOLUME 6.4 FL (7.4-10.4); MONOCYTES # (AUTO) 0.5 X10'3 (0-0.9); MONOCYTES % (AUTO) 13.9 % (2-12); NEUTROPHILS # (AUTO) 3.2 X10'3 (1.8-7.7); NEUTROPHILS % (AUTO) 81.2 % (42-75); PLATELET COUNT 61 X10'3 (140-440); RED BLOOD COUNT 3.22 X10'6 (4.70-6.10); RED CELL DISTRIBUTION WIDTH 13.9 % (11.5-14.5); WHITE BLOOD COUNT 3.9 X10'3 (4.5-11.0)
[2022-04-29] MEDS: thiamine 100mg/ml 2ml inj. IV SCH ×3 (07:05→21:00)
[2022-04-29] MEDS: folic acid 1mg/0.2ml inj IV SCH (07:06)
[2022-04-29] MEDS: sodium bicarbonate (8.4%) inj. 150 MEQ in dextrose 5%-water 850 ML IV SCH (07:07)
[2022-04-29] MEDS: K and/or MAG REPLACEMENT MC SCH (08:00)
[2022-04-29 08:30] LABS: ALANINE AMINOTRANSFERASE 92 U/L (12-78); ALBUMIN 2.7 G/DL (3.4-5.0); ALBUMIN/GLOBULIN RATIO 1.1 (1.1-1.5); ALKALINE PHOSPHATASE 136 IU/L (46-116); ANION GAP 10 (8-16); ASPARTATE AMINO TRANSFERASE 165 U/L (10-37); BILIRUBIN,TOTAL 1.4 MG/DL (0.1-1.0); BLOOD UREA NITROGEN 11 MG/DL (7-18); BUN/CREATININE RATIO 9.3 (5.4-32.0); CALCIUM 7.3 MG/DL (8.5-10.1); CHLORIDE 105 MMOL/L (99-107); CREATININE 1.18 MG/DL (0.60-1.10); GLUCOSE 111 MG/DL (70-104); MAGNESIUM 1.6 MG/DL (1.5-2.4); SODIUM 143 MMOL/L (135-145); TOTAL CARBON DIOXIDE 27.9 MMOL/L (24-32); TOTAL PROTEIN 5.2 G/DL (6.4-8.2); eGFR 64 ML/MIN
[2022-04-29 08:38] LABS: CREATINE KINASE 1557 U/L (39-308)
[2022-04-29 08:43] LABS: PHOSPHORUS 0.9 MG/DL (2.3-4.5)
[2022-04-29] MEDS: POTASSIUM BICARB 20meq eff tab 20 MEQ TABLET.EFF PO PRN ×3 (09:59→18:24)
--- NOTE | 2022-04-29 10:23 | NUR ---
PAGE DR. GOMEZ FOR CRITICAL LABS: POTASSIUM- 3.0; PHOSP- 0.9 AND CREATININE- 1.8. CALL BACK PENDING. Addendum: 04/29/22 at 1034 by Antoinette Kunz RN DR. GOMEZ ON UNIT AND UPDATED ON LABS. NEW ORDER FOR IV FLUIDS ALSO RECEIVED.
[2022-04-29] MEDS: normal saline 1000ml 1,000 ML IV SCH ×2 (10:39→21:18)
[2022-04-29] MEDS ORDERED: FOLI1TAB27 PO (12:49)
[2022-04-29] MEDS ORDERED: AMIO200T61 PO (12:49)
[2022-04-29] MEDS ORDERED: ATOR10TA70 PO (12:51)
[2022-04-29 13:30] VITALS: BP 159/84
[2022-04-29 16:58] VITALS: BP 134/72
--- NOTE | 2022-04-29 17:34 | NUR ---
SMITH REMOVED AT 1730 PER PROTOCOL. PATIENT TOLERATED WELL. WILL UPDATE ONCOMING NURSE POST VOID TO BE BY 23:30
--- NOTE | 2022-04-29 17:49 | NUR ---
PATIENT'S ELIAS LEES WS PRESENT AT THE BEDSIDE. SPOUSE TOOK ALL OF PATIENTS BELONGINGS HOME WITH HER- CLOTHES, SHOES, WALLET AND KEYS. SERENE KISER WAS ALSO PRESENT TO WITNESS.
[2022-04-29] MEDS ORDERED: APIX5TAB3 PO (18:52)
[2022-04-29 19:36] VITALS: BP 145/97
[2022-04-29 23:24] VITALS: BP 161/71
[2022-04-29] MEDS: ondansetron/PF 4mg/2ml inj IV PRN (23:32)
[2022-04-29] MEDS: morphine 2 MG/ML inj. syringe IV PRN (23:33)
[2022-04-30] MEDS: LORazepam 1 MG tablet PO PRN ×3 (02:48→20:35)
[2022-04-30 05:49] VITALS: BP 169/94
[2022-04-30 07:08] LABS: BASOPHILS % (AUTO) 0.4 % (0-1); EOSINOPHILS # (AUTO) 0.1 X10'3 (0-0.9); EOSINOPHILS % (AUTO) 2.3 % (0-6); LYMPHOCYTES # (AUTO) 0.2 X10'3 (1.1-4.8); LYMPHOCYTES % (AUTO) 9.1 % (21-51); MEAN CORPUSCULAR HEMOGLOBIN 36.4 PG (27.0-31.0); MEAN CORPUSCULAR HGB CONC 34.3 g/dL (33.0-36.5); MEAN CORPUSCULAR VOLUME 105.9 FL (78-98); MEAN PLATELET VOLUME 7.4 FL (7.4-10.4); MONOCYTES # (AUTO) 0.3 X10'3 (0-0.9); MONOCYTES % (AUTO) 11.6 % (2-12); NEUTROPHILS # (AUTO) 2.1 X10'3 (1.8-7.7); NEUTROPHILS % (AUTO) 76.6 % (42-75); RED BLOOD COUNT 3.02 X10'6 (4.70-6.10); RED CELL DISTRIBUTION WIDTH 13.6 % (11.5-14.5); WHITE BLOOD COUNT 2.7 X10'3 (4.5-11.0)
[2022-04-30] MEDS: normal saline 1000ml 1,000 ML IV SCH ×2 (07:24→16:35)
[2022-04-30] MEDS: thiamine 100mg/ml 2ml inj. IV SCH ×3 (07:24→20:35)
[2022-04-30] MEDS: K and/or MAG REPLACEMENT MC SCH (08:00)
[2022-04-30 08:19] LABS: BLOOD UREA NITROGEN 6 MG/DL (7-18); BUN/CREATININE RATIO 7.1 (5.4-32.0); CHLORIDE 105 MMOL/L (99-107); CREATININE 0.84 MG/DL (0.60-1.10); GLUCOSE 85 MG/DL (70-104); PHOSPHORUS 1.3 MG/DL (2.3-4.5); POTASSIUM 3.5 MMOL/L (3.5-5.1); SODIUM 137 MMOL/L (135-145); eGFR > 90 ML/MIN
[2022-04-30 08:20] LABS: PLATELET COUNT 49 X10'3 (140-440)
[2022-04-30 08:23] LABS: ALANINE AMINOTRANSFERASE 66 U/L (12-78); ALBUMIN 2.4 G/DL (3.4-5.0); ALBUMIN/GLOBULIN RATIO 0.9 (1.1-1.5); ALKALINE PHOSPHATASE 120 IU/L (46-116); ANION GAP 9 (8-16); ASPARTATE AMINO TRANSFERASE 106 U/L (10-37); BILIRUBIN,TOTAL 1.4 MG/DL (0.1-1.0); CALCIUM 7.4 MG/DL (8.5-10.1); CREATINE KINASE 1043 U/L (39-308); MAGNESIUM 1.4 MG/DL (1.5-2.4); TOTAL CARBON DIOXIDE 22.7 MMOL/L (24-32); TOTAL PROTEIN 5.1 G/DL (6.4-8.2)
[2022-04-30 08:24] LABS: PLATELET ESTIMATE DECREASED; TOTAL CELLS COUNTED 100
[2022-04-30] MEDS ORDERED: magnesium Cl slow-release 64mg tablet PO PRN (09:35)
[2022-04-30] MEDS: folic acid 1mg/0.2ml inj IV SCH (10:06)
[2022-04-30 11:00] VITALS: BP 156/85
[2022-04-30] MEDS: LORazepam 2 mg/ml vial IV PRN ×3 (12:43→17:33)
--- NOTE | 2022-04-30 15:59 | NUR ---
sent to Dr. Church [id number] Sean: need home med list meds.bp is 172/105. 1 mg ativan not touching his withdrawal symptoms. adjust the ativan iv to 2mg? He is requiring it every hour. A sitter is definitely needed. order for librium? Thank you. Julienne MEDELLIN [id number]
[2022-04-30] MEDS: morphine 2 MG/ML inj. syringe IV PRN (16:25)
[2022-04-30 18:00] VITALS: BP 160/89
[2022-04-30] MEDS: haloperidol lactate 5mg/ml inj IM PRN (20:35)
[2022-04-30] MEDS: acetaminophen 325mg tablet PO PRN (20:41)
[2022-04-30 22:00] VITALS: BP 160/86
--- NOTE | 2022-05-01 | NUR ---
Pt. is awake alert unrestrained oriented and cooperative. Wants to go home. He spoke with daughter on the phone, she will pick him up tomorrow at 530 pm if released by MD. Pt. has 2 peripheral IVs intact voids per urinal yellow clear large amt and sometimes by BSC. No Complaints post Tripp removal. Medicated for anxiety x 2 and headache x1. Plans to go home with daughter today if cleared by MD.
[2022-05-01] MEDS: normal saline 1000ml 1,000 ML IV SCH ×3 (02:35→19:32)
[2022-05-01 02:47] VITALS: BP 166/93
[2022-05-01] MEDS: acetaminophen 325mg tablet PO PRN ×2 (02:58→21:42)
[2022-05-01] MEDS: LORazepam 1 MG tablet PO PRN ×4 (02:58→19:32)
[2022-05-01 06:00] VITALS: BP 181/97
[2022-05-01] MEDS ORDERED: folic acid 1mg tablet PO SCH (08:00)
--- NOTE | 2022-05-01 08:28 | NUR ---
sent to dr. smith: [id number] Sean: bp is 181/97. need order for bp medication please. thank you. Julienne MEDELLIN [id number]
[2022-05-01 09:34] LABS: MAGNESIUM 1.7 MG/DL (1.5-2.4); POTASSIUM 3.4 MMOL/L (3.5-5.1)
[2022-05-01] MEDS: thiamine 100mg tablet PO SCH (10:33)
[2022-05-01] MEDS: morphine 2 MG/ML inj. syringe IV PRN ×2 (10:38→19:43)
[2022-05-01 11:00] VITALS: BP 151/102
[2022-05-01 11:22] LABS: BASOPHILS % (AUTO) 0.3 % (0-1); EOSINOPHILS # (AUTO) 0.1 X10'3 (0-0.9); EOSINOPHILS % (AUTO) 4.1 % (0-6); HEMATOCRIT 33.2 % (42.0-52.0); HEMOGLOBIN 11.5 g/dl (14.0-17.9); LYMPHOCYTES # (AUTO) 0.3 X10'3 (1.1-4.8); LYMPHOCYTES % (AUTO) 9.9 % (21-51); MEAN CORPUSCULAR HEMOGLOBIN 36.8 PG (27.0-31.0); MEAN CORPUSCULAR HGB CONC 34.5 g/dL (33.0-36.5); MEAN CORPUSCULAR VOLUME 106.5 FL (78-98); MEAN PLATELET VOLUME 7.1 FL (7.4-10.4); MONOCYTES # (AUTO) 0.4 X10'3 (0-0.9); MONOCYTES % (AUTO) 13.7 % (2-12); PLATELET COUNT 60 X10'3 (140-440); RED BLOOD COUNT 3.12 X10'6 (4.70-6.10); RED CELL DISTRIBUTION WIDTH 13.6 % (11.5-14.5); WHITE BLOOD COUNT 2.8 X10'3 (4.5-11.0)
[2022-05-01] MEDS: metoprolol succinate 25mg (24-HOUR) SR. Tablet PO SCH (11:35)
--- NOTE | 2022-05-01 11:36 | NUR ---
Sent to Dr. Solorzano: [id number] Sean: Please add medications from home med list. thank you. Julienne MEDELLIN [id number]
[2022-05-01 11:49] LABS: PLATELET ESTIMATE DECREASED; TOTAL CELLS COUNTED 100
[2022-05-01 11:57] LABS: ALANINE AMINOTRANSFERASE 64 U/L (12-78); ALBUMIN 2.7 G/DL (3.4-5.0); ALBUMIN/GLOBULIN RATIO 0.9 (1.1-1.5); ALKALINE PHOSPHATASE 116 IU/L (46-116); ASPARTATE AMINO TRANSFERASE 71 U/L (10-37); BILIRUBIN,TOTAL 1.3 MG/DL (0.1-1.0); BLOOD UREA NITROGEN 5 MG/DL (7-18); BUN/CREATININE RATIO 5.3 (5.4-32.0); CHLORIDE 107 MMOL/L (99-107); CREATININE 0.95 MG/DL (0.60-1.10); GLUCOSE 127 MG/DL (70-104); TOTAL PROTEIN 5.6 G/DL (6.4-8.2); eGFR 82 ML/MIN
[2022-05-01 12:25] LABS: ANION GAP 8 (8-16); SODIUM 138 MMOL/L (135-145)
[2022-05-01] MEDS: atorvastatin 10mg tablet PO SCH (12:37)
[2022-05-01] MEDS: POTASSIUM BICARB 20meq eff tab 20 MEQ TABLET.EFF PO PRN ×2 (12:37→17:01)
[2022-05-01] MEDS: amiodarone 200mg tablet PO SCH (12:38)
[2022-05-01] MEDS: venlafaxine XR 75mg capsule (Q24H) PO SCH (12:55)
--- NOTE | 2022-05-01 12:59 | NUR ---
Sent to Dr. Solorzano, [id number] Sean: pt smokes 1 1/2 pk of cigarettes/day. order for nicotine patch please? thank you. Julienne MEDELLIN [id number]
[2022-05-01] MEDS: nicotine 21mg patch - 24 hr TD SCH (14:39)
--- NOTE | 2022-05-01 17:05 | NUR ---
Pt states he is going to leave [facility]. I explained to pt that is important for him to stay due to his abnormal lab values and his medications that he is taking here. Pt states he understands but he has medications at home he can take. I explained that the doctor will most likely switch around some of his medications before he leaves, but he states that he will just take his medications at home. Notified Dr. Solorzano. Awaiting a reply.
--- NOTE | 2022-05-01 17:09 | NUR ---
sent to Dr. Solorzano: [id number] Sean: Pt states he is leaving against medical advice. I educated on the reasons why he should stay. He still will leave. Did you want to see him?
--- NOTE | 2022-05-01 17:50 | NUR ---
Sent to [facility]: [id number] Sean: After speaking to pt again. He has decided to stay. Just FYI.
[2022-05-01 18:00] VITALS: BP 167/98
[2022-05-01] MEDS: apixaban 5mg tablet PO SCH (19:31)
[2022-05-01] MEDS: topiramate 25mg tablet PO SCH (19:31)
[2022-05-01] MEDS: ondansetron/PF 4mg/2ml inj IV PRN (19:44)
[2022-05-01 22:00] VITALS: BP 170/96
[2022-05-01] MEDS ORDERED: LORazepam 2 mg/ml vial IV PRN (23:05)
[2022-05-02 02:11] VITALS: BP 152/81
--- NOTE | 2022-05-02 02:16 | NUR ---
Pt. is resting quietly after receiving antianxiety med. Less intentional tremors today. Pt. has a peripheral IV with IV fluids infusing. Pt. is ambulatory to BR gaits steady with one person assist. Looking forward to going home. Plan home with family when medically cleared.
[2022-05-02 06:00] VITALS: BP 167/98
[2022-05-02 07:43] LABS: MAGNESIUM 1.6 MG/DL (1.5-2.4); POTASSIUM 3.8 MMOL/L (3.5-5.1)
[2022-05-02] MEDS ORDERED: folic acid 1mg tablet PO SCH (08:00)
[2022-05-02] MEDS ORDERED: cholecalciferol (vitamin D3) 1,000 unit (25mcg) tablet PO SCH (08:00)
[2022-05-02] MEDS ORDERED: naltrexone 50mg tablet PO SCH (08:00)
[2022-05-02] MEDS: nicotine 21mg patch - 24 hr TD SCH (09:13)
[2022-05-02] MEDS: thiamine 100mg tablet PO SCH (09:14)
[2022-05-02] MEDS: atorvastatin 10mg tablet PO SCH (09:14)
[2022-05-02] MEDS: venlafaxine XR 75mg capsule (Q24H) PO SCH (09:14)
[2022-05-02] MEDS: topiramate 25mg tablet PO SCH (09:14)
[2022-05-02] MEDS: apixaban 5mg tablet PO SCH (09:14)
[2022-05-02] MEDS: amiodarone 200mg tablet PO SCH (09:14)
[2022-05-02] MEDS: metoprolol succinate 25mg (24-HOUR) SR. Tablet PO SCH (09:14)
--- NOTE | 2022-05-02 09:27 | NUR ---
Initial: Pt admit for EtOH intoxication, encephalopathy, hypothermia, and acidosis. Pt on a regular diet and initially eating poorly however up to average 80% PO intake of five most recent meals. Initial poor PO intake is possibly r/t intoxication on admit. Pt receiving routine Thiamine and Folic acid for EtOH hx. LBM 04/30, documented with diarrhea. No nutrition intervention implemented at this time. Will continue to follow and make recommendations as appropriate. Recommendations: 1) Continue regular diet 2) Monitor need for ONS/additional protein 3) Continue routine Thiamine and Folic acid, consider adding MVI d/t EtOH intake with elevated MCV 4) Bowel care PRN 5) Weekly scaled weights Addendum: 05/02/22 at [address] Amended: Links added.
[2022-05-02 11:54] LABS: BASOPHILS % (AUTO) 1.2 % (0-1); EOSINOPHILS # (AUTO) 0.1 X10'3 (0-0.9); EOSINOPHILS % (AUTO) 3.8 % (0-6); HEMATOCRIT 33.3 % (42.0-52.0); HEMOGLOBIN 11.5 g/dl (14.0-17.9); LYMPHOCYTES # (AUTO) 0.4 X10'3 (1.1-4.8); LYMPHOCYTES % (AUTO) 14.4 % (21-51); MEAN CORPUSCULAR HEMOGLOBIN 36.6 PG (27.0-31.0); MEAN CORPUSCULAR HGB CONC 34.4 g/dL (33.0-36.5); MEAN CORPUSCULAR VOLUME 106.4 FL (78-98); MEAN PLATELET VOLUME 7.1 FL (7.4-10.4); MONOCYTES # (AUTO) 0.6 X10'3 (0-0.9); MONOCYTES % (AUTO) 20.1 % (2-12); NEUTROPHILS # (AUTO) 1.8 X10'3 (1.8-7.7); NEUTROPHILS % (AUTO) 60.5 % (42-75); PLATELET COUNT 75 X10'3 (140-440); RED BLOOD COUNT 3.13 X10'6 (4.70-6.10); RED CELL DISTRIBUTION WIDTH 13.4 % (11.5-14.5); WHITE BLOOD COUNT 2.9 X10'3 (4.5-11.0)
[2022-05-02 12:05] LABS: ALANINE AMINOTRANSFERASE 52 U/L (12-78); ALBUMIN 2.8 G/DL (3.4-5.0); ALKALINE PHOSPHATASE 112 IU/L (46-116); ANION GAP 10 (8-16); ASPARTATE AMINO TRANSFERASE 47 U/L (10-37); BILIRUBIN,TOTAL 0.8 MG/DL (0.1-1.0); BLOOD UREA NITROGEN 8 MG/DL (7-18); BUN/CREATININE RATIO 8.8 (5.4-32.0); CALCIUM 8.8 MG/DL (8.5-10.1); CHLORIDE 105 MMOL/L (99-107); CREATININE 0.91 MG/DL (0.60-1.10); GLUCOSE 87 MG/DL (70-104); SODIUM 136 MMOL/L (135-145); TOTAL CARBON DIOXIDE 20.7 MMOL/L (24-32); TOTAL PROTEIN 5.6 G/DL (6.4-8.2); eGFR 86 ML/MIN
[2022-05-02 12:18] LABS: PLATELET ESTIMATE DECREASED; TOTAL CELLS COUNTED 100
[2022-05-02] MEDS ORDERED: METO-395 PO (13:01)
== END 2022-05-02 14:41 | disposition home or self-care (01) | DRG 52 ==
LOC: ER 19:54 → ED HOLD 23:25 → PCU 3S 04-28 21:40
PROVIDERS: ADMIT Internal Medicine Critical Care Medicine; ATTEND Internal Medicine Critical Care Medicine
DX: G92.8 Other toxic encephalopathy (principal); N17.9 Acute kidney failure, unspecified; F10.231 Alcohol dependence with withdrawal delirium; T68.XXXA Hypothermia, initial encounter; G31.2 Degeneration of nervous system due to alcohol; M62.82 Rhabdomyolysis; E83.39 Other disorders of phosphorus metabolism; E87.29 Other acidosis; K70.10 Alcoholic hepatitis without ascites; F32.A Depression, unspecified; F41.9 Anxiety disorder, unspecified; R00.1 Bradycardia, unspecified; E87.6 Hypokalemia; E78.5 Hyperlipidemia, unspecified; R50.9 Fever, unspecified; E78.00 Pure hypercholesterolemia, unspecified; F10.229 Alcohol dependence with intoxication, unspecified; F17.210 Nicotine dependence, cigarettes, uncomplicated; G89.4 Chronic pain syndrome; Y90.8 Blood alcohol level of 240 mg/100 ml or more; K74.60 Unspecified cirrhosis of liver; X31.XXXA Exposure to excessive natural cold, initial encounter; Z78.1 Physical restraint status; Z59.00 Homelessness unspecified; Z88.8 Allergy status to other drugs, medicaments and biological substances; Z79.899 Other long term (current) drug therapy
CPT/HCPCS: 36415; 36600; 70450; 71045; 73080; 73200; 80053; 80305; 80320; 81003; 82009; 82140; 82550; 82803; 82948; 83605; 83735; 84100; 84145; 84443; 84484; 85007; 85008; 85018; 85025; 85610; 85730; 87040; 87081; 93005; 96361; 96372; 96374; 96375; 97116; 97161; 97530; 99291; 99292; A4615; A6212; A6258; G0378; J1630; J2060; J2270; J2405; J3411; J3490; J7030; J7060; J7070; J7120

== ENCOUNTER → 2022-07-29 | Emergency (ER) | payer MEDICAID ==
[~2022-07-29] VITALS: Ht 177.8 cm; Wt 75.9 kg
[~2022-07-29] MED LIST changes: +AMIO200T61 PO; +APIX5TAB3 PO; -ATOR10TA PO; +ATOR10TA70 PO; -DILT240C90 PO; +FOLI1TAB27 PO; +GUAI400T92 PO; -HYDR-3927 PO; +METO-395 PO; +NIRM1TAB PO; -PROP40TA72 PO; +TOPI-253 PO; -TOPI50TA24 PO; -VENL75CA61 PO
[2022-07-29 11:50] VITALS: BP 114/74
== END | disposition home or self-care (01) ==
LOC: ER 11:32
DX: U07.1 COVID-19 (principal); I11.0 Hypertensive heart disease with heart failure; E78.00 Pure hypercholesterolemia, unspecified; F32.A Depression, unspecified; Z88.8 Allergy status to other drugs, medicaments and biological substances; Z88.1 Allergy status to other antibiotic agents; Z88.6 Allergy status to analgesic agent; Z79.899 Other long term (current) drug therapy
CPT/HCPCS: 87811; 99283

== ENCOUNTER 2022-08-25 05:36 | Emergency (ER) | payer MEDICAID ==
[~2022-08-25] VITALS: Ht 177.8 cm; Wt 79.5 kg
[2022-08-25 05:52] VITALS: BP 118/83
== END 2022-08-25 07:20 | disposition left against medical advice (07) ==
LOC: ER 05:37
DX: H57.11 Ocular pain, right eye (principal); Z53.21 Procedure and treatment not carried out due to patient leaving prior to being seen by health care provider
CPT/HCPCS: 99281

== ENCOUNTER 2022-10-23 17:44 | Emergency (ER) | payer MEDICAID ==
[~2022-10-23] VITALS: Ht 177.8 cm; Wt 75.0 kg
[~2022-10-23 17:44] MED LIST changes: +AMI200T PO; -AMIO200T61 PO
[2022-10-23 17:46] VITALS: BP 164/121
[2022-10-23] MEDS ORDERED: AMOX-117 PO (18:07)
[2022-10-23] MEDS ORDERED: bacitracin 15gm ointment TP ONE (18:10)
[2022-10-23] MEDS ORDERED: LIDOcaine 1% 30ml preserv. free vial IJ ONE (18:10)
[2022-10-23] MEDS ORDERED: TETanus/Pertussis (Acell)/Diphther VAC/PF (Tdap-Adult) 0.5ml syringe IMVAC ONE (18:10)
[2022-10-23] MEDS ORDERED: amox tr/potassium clavulanate 875/125mg TAB PO ONE (18:10)
== END 2022-10-23 18:48 ==
LOC: ER 17:45
DX: S31.119A Laceration without foreign body of abdominal wall, unspecified quadrant without penetration into peritoneal cavity, initial encounter (principal); S40.211A Abrasion of right shoulder, initial encounter; E78.00 Pure hypercholesterolemia, unspecified; I25.2 Old myocardial infarction; G89.29 Other chronic pain; F32.9 Major depressive disorder, single episode, unspecified; F10.10 Alcohol abuse, uncomplicated; Z88.8 Allergy status to other drugs, medicaments and biological substances; Z88.1 Allergy status to other antibiotic agents; Z79.899 Other long term (current) drug therapy; Z79.01 Long term (current) use of anticoagulants; W54.0XXA Bitten by dog, initial encounter; Y93.89 Activity, other specified; Y92.89 Other specified places as the place of occurrence of the external cause; Y99.8 Other external cause status; Y90.9 Presence of alcohol in blood, level not specified
CPT/HCPCS: 12032; 90471; 90715; 99284; J7030; A6449

== ENCOUNTER 2024-03-18 11:26 | Emergency (ER) | payer MEDICAID ==
[~2024-03-18] VITALS: Ht 177.8 cm; Wt 70.9 kg
[~2024-03-18 11:26] MED LIST changes: -NALT50TA PO; +NALT50TA5 PO; -TOPI-253 PO; +TOPI-95 PO
[2024-03-18 12:07] VITALS: TEMP 97.4
[2024-03-18 13:01] LABS: EOSINOPHILS # (AUTO) 0.2 X10'3 (0-0.9); EOSINOPHILS % (AUTO) 4.2 % (0-6); HEMATOCRIT 35.6 % (42.0-52.0); HEMOGLOBIN 12.2 g/dl (14.0-17.9); LYMPHOCYTES # (AUTO) 0.6 X10'3 (1.1-4.8); LYMPHOCYTES % (AUTO) 13.3 % (21-51); MEAN CORPUSCULAR HGB CONC 34.4 g/dL (33.0-36.5); MEAN CORPUSCULAR VOLUME 95.9 FL (78-98); MEAN PLATELET VOLUME 7.1 FL (7.4-10.4); MONOCYTES # (AUTO) 0.5 X10'3 (0-0.9); MONOCYTES % (AUTO) 9.5 % (2-12); NEUTROPHILS # (AUTO) 3.4 X10'3 (1.8-7.7); PLATELET COUNT 164 X10'3 (140-440); RED BLOOD COUNT 3.71 X10'6 (4.70-6.10); RED CELL DISTRIBUTION WIDTH 13.5 % (11.5-14.5); WHITE BLOOD COUNT 4.8 X10'3 (4.5-11.0)
[2024-03-18 13:07] LABS: ALBUMIN 3.2 G/DL (3.4-5.0); ANION GAP 3 (8-16); BLOOD UREA NITROGEN 10 MG/DL (7-18); BUN/CREATININE RATIO 9.2 (10.0-20.0); CALCIUM 8.7 MG/DL (8.5-10.1); CHLORIDE 107 MMOL/L (99-107); CREATININE 1.09 MG/DL (0.60-1.10); GLUCOSE 89 MG/DL (70-104); POTASSIUM 3.9 MMOL/L (3.5-5.1); SODIUM 137 MMOL/L (135-145); TOTAL CARBON DIOXIDE 26.7 MMOL/L (24-32); eCRCL 73 ML/MIN; eGFR 69 ML/MIN
[2024-03-18 13:10] LABS: APTT 28 SECONDS (22-32); PROTHROMBIN TIME 10.7 SECONDS (9.0-12.0)
[2024-03-18 14:41] VITALS: BP 126/69; PULSE 53; RESP 14; O2SAT 99
== END 2024-03-18 14:44 | disposition home or self-care (01) ==
LOC: ER 11:27
DX: H53.8 Other visual disturbances (principal); H26.9 Unspecified cataract; E78.00 Pure hypercholesterolemia, unspecified; I25.2 Old myocardial infarction; R79.1 Abnormal coagulation profile; R53.1 Weakness; Z88.1 Allergy status to other antibiotic agents; Z88.6 Allergy status to analgesic agent; Z79.899 Other long term (current) drug therapy
CPT/HCPCS: 36415; 70450; 71045; 80048; 82948; 85025; 85610; 85730; 93005; 99285; J7030

== ENCOUNTER 2024-12-15 18:46 | Inpatient (IN) | payer MEDICAID ==
[~2024-12-15] VITALS: Ht 177.8 cm; Wt 78.3 kg
[~2024-12-15 18:46] MED LIST changes: -AMI200T PO; +AMIO200T76 PO
--- NOTE | 2024-12-15 19:10 | Physician Documentation ---
History of Present Illness ~ Chief Complaint: Palpitations Stated Complaint: ABDOMINAL PAIN Time Seen by MD: 19:02 OK to notify your PCP?: Yes Primary Medical Doctor: NONE Source: patient, RN/MD, EMS, RN notes reviewed, EMS notes reviewed, old records Mode of Arrival: EMS, Stretcher Exam Limitations: no limitations Almonte Bed Addressed? 59 year old male seen in bed 19 with a history of cholecectomy, LA and afib presents to the emergency department for complaints of abdominal pain that has been present for two hours. He states that his pain began while he was on a walk. He states his pain is constant and is unrelated to his atrial flutters. He states that he last ate at 1200 today and denies eating anything unusual that would result in the pain. Patient states he has been experiencing a little vom iting but denies diarrhea.Patient states that he is not currently being followed by a dry cleaner helper. Patient has a CAT scan and was transferred to our facility. Medication Reconciliation Allergies: Coded Allergies: Bacitracin Zinc (Unverified Allergy, Unknown, 07/29/22) bacitracin (Unverified Allergy, Unknown, 07/29/22) gramicidin D (Unverified Allergy, Unknown, 07/29/22) neomycin sulfate (Unverified Allergy, Unknown, 07/29/22) polymyxin B (Unverified Allergy, Unknown, 07/29/22) polymyxin B sulfate (Unverified Allergy, Unknown, 07/29/22) Uncoded Allergies: REMRON (Allergy, Mild, rash, 07/29/22) Scheduled Amiodarone Hcl (Cordarone), 1 TAB PO DAILY, (Reported) Apixaban (Eliquis), 1 TAB PO Q12H, (Reported) Atorvastatin Calcium (Atorvastatin Calcium), 1 TAB PO DAILY, (Reported) Cholecalciferol (Vitamin D3) (Vitamin D3), 1 TAB PO DAILY, (Reported) Diltiazem Hcl (Cardizem Cd), 1 CAP PO DAILY, (Reported) Folic Acid* (Folic Acid*), 1 TAB PO DAILY, (Reported) Ibuprofen (Ibuprofen), 1 TAB PO TID, (Reported) Metoprolol Succinate (Metoprolol Succinate), 25 MG PO DAILY Multivitamin with Folic Acid (Thera Tablet), 1 TAB PO DAILY Naltrexone Hcl (Naltrexone Hcl), 1 TAB PO DAILY, (Reported) Pantoprazole Sodium (PROTONIX tablet), 1 TAB PO DAILY Thiamine HCl (Vitamin B-1), 2 TAB PO DAILY Topiramate (Topiramate), 1 TAB PO BID, (Reported) Venlafaxine Hcl (Venlafaxine Hcl Er), 1 CAP PO DAILY, (Reported) Discontinued Medications Guaifenesin (Guaifenesin), 1 TAB PO Q8H Discontinued Reason: completed med therapy Nirmatrelvir/Ritonavir (Paxlovid Co-Pack (Eua)), 3 EACH PO BID Discontinued Reason: Other Past Medical History Past Medical History: Arrhythmia, High Cholesterol, Myocardial Infarction, Cirrohsis, Chronic Pain, Depression Past Surgical History: noncontributory Alcohol Use: Abuse Drug Use: none Lives In: Home Occupation: employed Review of Systems All Other Systems at this time: Reviewed and Negative ROS As stated above in the HPI, otherwise all systems are reviewed and negative. Physical Exam Vital Signs: RN Vital Signs have been reviewed: Yes, Temperature: 98.6, Source: Temporal, Heart Rate: 93, Respiratory Rate: 15, BP: 98/67, Pulse Oximetry: 95, Weight: 78.350 Pulse Oximetry Reflects: adequate oxygenation Physical Exam General: The patient is well developed, well nourished, nontoxic appearing and is in no acute distress. Skin: [place], warm and dry with no rashes. HEENT: Head was normocephalic and atraumatic. Eyes - pupils equal, round, reactive to light and accommodation. Extraocular movements were intact. Conjunctivae were nonicteric. Ears - bilateral tympanic membranes were normal. The mouth and oropharynx were clear with moist mucous membranes. There were no pharyngeal exudates or erythema. Neck: Supple and nontender. There was no jugular venous distention, lymphadenopathy, thyromegaly or masses. Chest: Clear to auscultation bilaterally without wheezes, rales or rhonchi. No accessory muscle use. No dullness to percussion. Heart: Rate regular and rhythmic. S1, S2. No murmurs. Palpation of the chest wall was normal. No rubs or thrills. Abdomen:Hyperactive bowel sounds, with general abdominal tenderness. No guarding or rebound. No hepatosplenomegaly or palpable masses. Extremities: No cyanosis, clubbing or edema. The patient moves all extremi ties. Pulses were equal and symmetric. Neurologic: Cranial nerves II-XII were intact. Sensation was intact to light touch throughout. Motor strength was 5/5 in all four extremities. Deep tendon reflexes were intact in both upper and lower extremities. Psychologic: The patient was oriented to person, place and time. The patient demonstrated appropriate judgement and insight. Progress Progress Note 2103: A message was left with Dr. Vargas informing him about the patient. 2130: The case was discussed with the hospitalist who was informed on the patient and kindly agreed to admission. Results/Orders Results/Orders Orders - JODIE COOLEY MD Chest,Single View (12/15/24 19:24) Monitor (12/15/24 19:02) Saline Lock (12/15/24:02) Oxygen (12/15/24 19:02) Electrocardiogram (12/15/24 19:02) Ct Abdomen Pelvis (12/15/24 20:13) Page Hospitalist (12/15/24 21:02) Fill Out Med Reconciliation (12/15/24 21:02) Electrocardiogram (12/16/24 ) Completed Orders - JODIE COOLEY MD Chest,Single View (12/15/24 19:24) Cbc/Diff (12/15/24 19:02) BMP (12/15/24 19:02) PBNP (12/15/24 19:02) Electrocardiogram (12/15/24 19:02) Hs Troponin I W Calculations (12/15/24 19:02) Hs Troponin I W Calculations (12/15/24 21:02) Hs Troponin I W Calculations (12/15/24 22:02) MG (12/15/24 19:03) Ethanol (12/15/24 19:03) Lipase (12/15/24 19:02) Pt Inr (12/15/24 19:02) PTT (12/15/24 19:02) Urinalysis, Cult If Indicated (12/15/24 19:02) Drug Screen, Urine (12/15/24 19:02) Aspirin 81mg Chew Tablet (Aspirin 81mg C (12/15/24 19:05) Normal Saline 1000ml (0.9% Sodium Chlori (12/15/24 19:05) Liver Panel (12/15/24 19:09) Ct Abdomen Pelvis (12/15/24 20:13) Potassium Cl 10meq/100ml Bag (Potassium (12/15/24 21:00) LA (12/15/24 21:12) ESR (12/15/24 21:12) C-Reactive Protein (12/15/24 19:14) Hgb A1c (12/15/24 19:14) Lipid Panel (12/15/24 19:14) TSH (12/15/24 19:14) Electrocardiogram (12/16/24 ) Laboratory Tests Test 12/15/24 19:11 12/15/24 19:14 12/15/24 21:16 12/15/24 22:41 Lactic Acid Level 1.6 White Blood Count 10.4 Red Blood Count 4.28 L Hemoglobin 14.3 Hematocrit 41.7 L Mean Corpuscular Volume 97.2 Mean Corpuscular Hemoglobin 33.4 H Mean Corpuscular Hemoglobin Concent 34.3 Red Cell Distribution Width 14.5 Platelet Count 206 Mean Platelet Volume 7.2 L Neutrophils (%) (Auto) 89.7 H Lymphocytes (%) (Auto) 3.7 L Monocytes (%) (Auto) 4.6 Eosinophils (%) (Auto) 0.8 Basophils (%) (Auto) 1.2 H Neutrophils # (Auto) 9.4 H Lymphocytes # (Auto) 0.4 L Monocytes # (Auto) 0.5 Eosinophils # (Auto) 0.1 Basophils # (Auto) 0.1 CBC Comment Erythrocyte Sedimentation Rate 6 Prothrombin Time 10.8 INR International Normalized Ratio 1.1 Activated Partial Thromboplast Time 24 Coagulation Comments Sodium Level 140 Potassium Level 3.2 L Chloride Level 104 Carbon Dioxide Level 27.1 Anion Gap 9 Blood Urea Nitrogen 18 Creatinine 1.66 H Estimated GFR/1.73 m2 42 BUN/Creatinine Ratio 10.8 Glucose Level 116 H Hemoglobin A1c 5.2 Calcium Level 8.9 Magnesium Level 2.0 Total Bilirubin 0.7 Direct Bilirubin 0.2 Aspartate Amino Transf (AST/SGOT) 23 Alanine Aminotransferase (ALT/SGPT) 23 Alkaline Phosphatase 94 Troponin I High Sensitivity 6 6 8 C-Reactive Protein 0.15 Pro-B-Type Natriuretic Peptide 288 H Total Protein 7.4 Albumin 4.1 Globulin 3.3 Albumin/Globulin Ratio 1.2 Triglycerides Level 74 Cholesterol Level 137 LDL Cholesterol 56 HDL Cholesterol 66 H Cholesterol/HDL Ratio 2.1 Lipase 13 L Thyroid Stimulating Hormone (TSH) 1.54 Chemistry Comments Ethyl Alcohol Level 52 H Troponin I High Sens Percent Delta 0 33 Troponin I Hi Sens Absolute Change 0 2 Re-Evaluation Re-Evaluation : Re-Evaluation: Improved Additional Comment Patient was seen and examined. Patient was given reassurance. Patient was having some abdominal pain vomiting states his not his normal baseline pain. IV lines were established laboratory work was obtained. Patient was having some pain that was epigastric but also radiating toward the chest area. For that reason cardiac etiologies was considered. Patient's aspirin was given 325 mg. And fluid boluses as well. During the workup he was found to have some electrolyte abnormalities potassium 10 mEq was then given. Laboratory work shows a normal CBC. Chemistry showed an elevated creatinine much higher than baseline of 1.66 potassium low at 3.2. Magnesium normal at 2.0 troponins x3 was negative proBNP 288 LFTs within normal limits. Lipase within normal limits and tox screen showed some alcohol at 52 with a negative tox screen. Urinalysis was within normal limits. Patient presents with a CT scan without contrast prior to admission showing fluid-filled and dilated loops in the small bowel consistent with small-bowel obstruction. Patient's clinically soft. Patient then was admitted to the hospitalist service for further workup and care. Initial blood pressure was 98/67 prior to fluids being provided. Continuous traffic monitor specialist interpretation shows a flutter irregular heart rate 90s, no ectopy, abnormal, my interpretation. Pulse oximetry monitor interpretation shows normal oxygenation at 95% room air, normal, my interpretation. EKG/XRAY/CT/US/VASC/MRI EKG : Additional Comment 1192: DEISY Cooley interpreted EKG to reveal atrial flutter with a rhythm of 88bpm. Patient has a Qtc of 469 with good r wave progression. Chest X-Ray : Additional Comments CHEST RADIOGRAPH Indication: CP Technique: Single frontal view of the chest was obtained Comparison: DI CHEST,SINGLE VIEW on DOS: 03/18/24, CHEST,SINGLE VIEW on DOS: 04/27/22, CTA CHEST on DOS: 09/06/21 FINDINGS: Lines and Tubes: None Lungs: No focal consolidation. Pleura: No effusion. No pneumothorax. Cardiomediastinal contours: Unremarkable Bones: No acute osseous abnormality. IMPRESSION: No acute cardiopulmonary disease. Electronically Signed by:SHANTA CHEN DO Date & Time: 12/15/241932 CT : Impression Exam: CT CT ABDOMEN PELVIS History: ABD PAIN, epigastric pain Comparison Study: None TECHNIQUE: Multidetector CT of the abdomen and pelvis was performed from lung bases to pubic symphysis. Imaging was performed without IV contrast. Axial, coronal, and sagittal multiplanar reformats were obtained from the axial data set by the technologist. RADIATION DOSE: CTDI vol 14.06 mGy. DLP 767.62 mGy.cm Findings: Limited evaluation of the solid organs in the absence of IV contrast. Liver: Unremarkable. Spleen: Small splenules. Pancreas: Unremarkable. Gallbladder: Prior cholecystectomy with dilated appearance of the common bile duct. Adrenals: Unremarkable Kidneys: Unremarkable. Pelvic Viscera: Unremarkable. Vasculature: Mild atherosclerotic aortoiliac calcifications. Retroperitoneum: Shotty retroperitoneal nodes. Bowel: Fluid-filled and dilated loops of small bowel within the left upper quadrant. There are decompressed distal small bowel loops. The appendix is n ormal. Musculoskeletal: Unremarkable. Soft tissues: Unremarkable Lungs: Minimal basilar atelectasis. Impression: 1. Findings as above raising the possibility of small-bowel obstruction in the appropriate clinical setting. Differential considerations also include enteritis. Further clinical correlation is suggested. 2. Prior cholecystectomy with dilated appearance of the common bile duct, possibly postsurgical, though comparison with prior imaging is suggested in assessing acuity and interval change. 3. Incidental findings as detailed. Electronically Signed by:FREDO TORO MD Date & Time: 12/15/242047 Medical Decision Making Additional info obtained from: old records Differential Dx:Considerations: Include: angina / LA, atrial dysrhythmia, atrial fibrillation, atrial flutter, MAT, PACs, PSVT, sinus tachycardia, WPW, 1st degree AV block, 2nd degree AVB-type 1, 2nd degree AVB-type 2, 3rd degree AV block, PVCs, torsades de pointes, ventricular fibrillation, ventricular tachycardia, other Differential Dx:Considerations: Include anxiety/panic attack, Include digoxin toxicity, Include electrolyte disorder, Include heart failure, Include hyperthyroidism, Include hyperventilation, Include hypoxia, Include pacemaker malfunction, Include pulmonary embolus, Include renal failure, Include other Departure Time of Disposition: 21:31 Disposition: 09 ADMITTED INPATIENT Admitted to Inpatient Unit: yes, to hospitalist Admission Level of Care: PCU with Tele Impression: Primary Impression: Small bowel obstruction Additional Impressions: Atrial flutter Qualified Codes: I48.92 - Unspecified atrial flutter Alcohol intoxication Qualified Codes: F10.929 - Alcohol use, unspecified with intoxication, unspecified Hypokalemia Acute renal failure (ARF) Qualified Codes: N17.9 - Acute kidney failure, unspecified Condition: Guarded Referrals: NO PRIMARY CARE PROVIDER (PCP) Prescriptions Pantoprazole Sodium (PROTONIX tablet) 40 Mg Tablet.dr 1 TAB PO DAILY for 14 Days, #14 TAB 0 Refills Prov: ALIREZA HOPKINS, RES 12/18/24 Multivitamin with Folic Acid (Thera Tablet) 400 Mcg Tablet 1 TAB PO DAILY for 30 Days, #30 TAB 0 Refills Prov: ALIREZA HOPKINS RES 12/18/24 Thiamine HCl (Vitamin B-1) 50 Mg Tablet 2 TAB PO DAILY for 30 Days, #60 TAB 0 Refills Prov: ALIREZA HOPKINS, RES 12/18/24 Education Educated: Patient Educated regarding: diagnosis Critical Care Note Total Time (mins): 30 Critical Care Note The very real possibility of a deterioration of this patient's condition required the highest level of my preparedness for sudden, emergent intervention. I provided critical care services, which included medication orders, frequent reevaluations of the patient's condition and response to treatment, ordering and reviewing test results, and discussing the case with various consultants. Excludes time spent performing separately billable procedures. The critical care time associated with the care of the patient was. 30 minutes Signature Scribe Signature: Scribed for oJdie Cooley MD by Lyn Monaco . 12/15/24 19:15 Attestation: The note accurately reflects work and decisions made by me.Jodie Cooley MD 12/15/24 19:10 JODIE COOLEY MD Dec 15, 2024 19:10 LYN WELCH Dec 15, 2024 19:15
[2024-12-15] MEDS: normal saline 1000ML IV soln IVB ONE (19:25)
[2024-12-15 19:29] LABS: MEAN PLATELET VOLUME 7.2 FL (7.4-10.4); RED CELL DISTRIBUTION WIDTH 14.5 % (11.5-14.5)
[2024-12-15 19:36] LABS: APTT 24 SECONDS (22-32); INR 1.1 INR
--- NOTE | 2024-12-15 19:36 | RADIOLOGY REPORT ---
CHEST RADIOGRAPH Indication: CP Technique: Single frontal view of the chest was obtained Comparison: DI CHEST,SINGLE VIEW on DOS: 03/18/24, CHEST,SINGLE VIEW on DOS: 04/27/22, CTA CHEST on DO S: 09/06/21 FINDINGS: Lines and Tubes: None Lungs: No focal consolidation. Pleura: No effusion. No pneumothorax. Cardiomediastinal contours: Unremarkable Bones: No acute osseous abnormality. IMPRESSION: No acute cardiopulmonary disease.
[2024-12-15 19:51] LABS: CREATININE 1.66 MG/DL (0.60-1.10); TOTAL CARBON DIOXIDE 27.1 MMOL/L (24-32); eCRCL 49 ML/MIN; eGFR 42 ML/MIN
[2024-12-15 19:53] LABS: ETHANOL 52 MG/DL (<10); PRO BRAIN NATRIURETIC PEPTIDE 288 PG/ML (0-125)
--- NOTE | 2024-12-15 20:51 | RADIOLOGY REPORT ---
Exam: CT CT ABDOMEN PELVIS History: ABD PAIN, epigastric pain Comparison Study: None TECHNIQUE: Multidetector CT of the abdomen and pelvis was performed from lung bases to pubic symphysi s. Imaging was performed without IV contrast. Axial, coronal, and sagittal multiplanar reformats were obtained from the axial data set by the technologist. RADIATION DOSE: CTDI vol 14.06 mGy. DLP 767.62 mGy.cm Findings: Limited evaluation of the solid organs in the absence of IV contrast. Liver: Unremarkable. Spleen: Small splenules. Pancreas: Unremarkable. Gallbladder: Prior cholecystectomy with dilated appearance of the common bile duct. Adrenals: Unremarkable Kidneys: Unremarkable. Pelvic Viscera: Unremarkable. Vasculature: Mild atherosclerotic aortoiliac calcifications. Retroperitoneum: Shotty retroperitoneal nodes. Bowel: Fluid-filled and dilated loops of small bowel within the left upper quadrant. There are decomp ressed distal small bowel loops. The appendix is normal. Musculoskeletal: Unremarkable. Soft tissues: Unremarkable Lungs: Minimal basilar atelectasis. Impression: 1. Findings as above raising the possibility of small-bowel obstruction in the appropriate clinical s etting. Differential considerations also include enteritis. Further clinical correlation is suggeste d. 2. Prior cholecystectomy with dilated appearance of the common bile duct, possibly postsurgical, th gh comparison with prior imaging is suggested in assessing acuity and interval change. 3. Incidental findings as detailed.
[2024-12-15] MEDS: potassium CL 10mEq/100ml bag 100 ML IV ONE (21:05)
[2024-12-15] MEDS ORDERED: potassium Cl 40MEQ/1/2NS 520ml 520 ML IV PRN (22:55)
[2024-12-15] MEDS ORDERED: magnesium hydroxide 30ml (MOM) UD suspension PO PRN (22:55)
[2024-12-15] MEDS ORDERED: mag hydrox/Alum hydrox/simeth 30ml oral suspension PO PRN (22:55)
[2024-12-15] MEDS ORDERED: HYDROmorphone/PF 0.2 MG/ML SYRINGE IV PRN (22:55)
[2024-12-15] MEDS ORDERED: metoclopramide 5 mg/ml inj IV PRN (22:55)
[2024-12-15] MEDS ORDERED: potassium Cl 20 mEq SR tablet PO PRN (22:55)
[2024-12-15] MEDS ORDERED: magnesium sulf-water 2g/50mL 50 ML IV PRN (22:55)
[2024-12-15] MEDS ORDERED: magnesium sulf-water 4G/100mL 100 ML IV PRN (22:55)
[2024-12-15] MEDS ORDERED: magnesium Cl slow-release 64mg tablet PO PRN (22:55)
[2024-12-15 23:28] LABS: CHOL/HDL RATIO 2.1 (0.00-4.99); LDL CHOLESTEROL 56 MG/DL (50-100)
[2024-12-15] MEDS: ringers solution, lacted 1,000 ML IV SCH (23:40)
--- NOTE | 2024-12-15 23:51 | RADIOLOGY REPORT ---
ABDOMEN, (KUB) ONE VIEW REASON FOR EXAM: NG Tube placement COMPARISON: CT CT ABDOMEN PELVIS on DOS: 12/15/24 TECHNIQUE: A single view of the abdomen is obtained. FINDINGS: The lower abdomen is excluded from view. There is an enteric tube with the tip projecting over the stomach in the side hole projecting over the distal esophagus. Surgical clips project over the right upper quadrant. There is mild gaseous distention of the stomach and the transverse colon. IMPRESSION: Enteric tube tip projects over the stomach and the side hole projects over the distal esophagus. Adva ncement 8-10 cm is recommended.
[2024-12-16] MEDS: ondansetron/PF 4mg/2ml inj IV SCH (02:17)
--- NOTE | 2024-12-16 02:35 | HISTORY AND PHYSICAL-Residence ---
History & Physical Providers to CC Resident Creating Document: SASHA GRAVES RES ~ History of Present Illness Primary Medical Doctor: NONE Reason for Admit\Complaint: Small-bowel obstruction History of Present Illness This is a 59-year-old with a past medical history of atrial flutter, hypertension, bipolar disorder, alcohol use disorder, presented to the emergency department for severe abdominal pain, nausea, vomiting and reduced passage of gas since yesterday. The patient had a bowel movement at 4:00 p.m. but states no more passage of gas after that episode. The pain is more intense in periumbilical region, without radiation. He denies fever, chest pain, shortness of breath or urinary symptoms. The patient has a history of alcohol use disorder and consumed alcohol this morning. He also feels intermittent palpitations and was recently diagnosed with atrial flutter, current on Eliquis, amiodarone and metoprolol. Allergies: Coded Allergies: Bacitracin Zinc (Unverified Allergy, Unknown, 07/29/22) bacitracin (Unverified Allergy, Unknown, 07/29/22) gramicidin D (Unverified Allergy, Unknown, 07/29/22) neomycin sulfate (Unverified Allergy, Unknown, 07/29/22) polymyxin B (Unverified Allergy, Unknown, 07/29/22) polymyxin B sulfate (Unverified Allergy, Unknown, 07/29/22) Uncoded Allergies: REMRON (Allergy, Mild, rash, 07/29/22) Home Medications Home Medications Active Paxlovid Co-Pack (Eua) (Nirmatrelvir/Ritonavir) 1 Each Tablet 3 Each PO BID 5 Days Take 3 tablets--300mg of nirmatrelvir with ritonavir 100mg--(administer together) twice daily for 5 days. Start as soon as possible. Metoprolol Succinate 25 Mg Tab.sr.24h 25 Mg PO DAILY 30 Days Reported Eliquis (Apixaban) 5 Mg Tablet 1 Tab PO Q12H 30 Days Atorvastatin Calcium 10 Mg Tablet 1 Tab PO DAILY Folic Acid* (Folic Acid) Y Tab 1 Tab PO DAILY Cordarone (Amiodarone HCl) 200 Mg Tablet 1 Tab PO DAILY Vitamin D3 (Cholecalciferol (Vitamin D3)) 50 Mcg Tablet 1 Tab PO DAILY Ibuprofen 600 Mg Tablet 1 Tab PO TID Topiramate 50 Mg Tablet 1 Tab PO BID Venlafaxine Hcl Er (Venlafaxine Hcl) 150 Mg Cap.sr.24h 1 Cap PO DAILY Naltrexone Hcl 50 Mg Tablet 1 Tab PO DAILY Past Medical History Past Medical History Atrial flutter Hypertension Bipolar disorder Alcohol use disorder Past Surgical History Surgical History Comment Cholecystectomy in 2005 Past Social History Smoking: Less than 1 pack/day (The patient smokes one pack every three days since he was 19-year-old) Alcohol Use: Abuse Drug Use: None Lives with: Alone Lives In: Home Occupation: employed [employer] All Other Systems: Reviewed and Negative Constitutional: Reports: no symptoms reported Eyes: Reports: no symptoms reported ENT: Reports: no symptoms reported Respiratory: Reports: no symptoms reported Cardiovascular: Reports: no symptoms reported Gastrointestinal: Reports: abdomen distended, abdominal pain, nausea, vomiting, constipated, poor appetite Genitourinary: Reports: no symptoms reported Male Genitalia: Reports: no symptoms reported Neurological: Reports: no symptoms reported Musculoskeletal: Reports: no symptoms reported Integumentary: Reports: no symptoms reported Allergic/Immunologic: Reports: no symptoms reported Hematologic/Lymphatic: Reports: no symptoms reported Endocrine: Reports: no symptoms reported Psychiatric: Reports: no symptoms reported Exam Vitals: Vital Signs Date Time Temp Pulse Resp B/P (MAP) Pulse Ox O2 Delivery O2 Flow Rate FiO2 12/16/24 00:55 102 16 126/77 (93) 96 0 12/15/24 20:49 98.6 General: General: Awake and Alert, no acute distress. HEENT: Conjunctiva pink, Sclera clear, Mucus Membranes dry Neck: Supple without masses and tenderness. Resp: Unlabored. Lungs clear to auscultation bilaterally. Heart: Iregular Rate and rhythm, normal S1 and S2 without murmur, rub or gallop. Abdomen: Mild distended and tender in the periumbilical region, no guarding or rebound. Hypertympanic and increased bowel sounds. No organomegaly noted. Extremities: No cyanosis,clubbing or edema. Skin: Warm and Dry. Diagnostic Data Last Recorded Lab Results: 12/15/24191312/15/241913 Diagnostic Data: Laboratory Tests Test 12/15/24 19:14 Prothrombin Time 10.8 SECONDS (9.0-12.0) INR International Normalized Ratio 1.1 INR Activated Partial Thromboplast Time 24 SECONDS (22-32) Coagulation Comments Counseling Services Smoking & Tobacco Cessation: 3-10 Minutes Advance Care Planning Advanced Care plannin - 30 Minutes (The patient wishes to be full code) Additional Plan Assessment This is a 59-year-old male patient admitted for severe abdominal pain, nausea, vomiting and reduced passage of gas. Abdomen CT showed possible signs of small- bowel obstruction without complication. He was started on IV fluids, symptomatic treatment and NG tube. Plan Small-bowel obstruction - clinically stable Abdomen CT without contrast before admission: Fluid-filled and dilated loops of small bowel within the left upper quadrant. There are decompressed distal small bowel loops. WBC 10.4, ESR 6, lipase 13, lactic acid 1.6 1000 mL normal saline bolus Ordered NPO and NG tube Lactated ringer at 125mL/hr Zofran 4 mg scheduled Symptomatic treatment Consider surgeon consultation if conservative measures fail Acute kidney injury Most likely related to prerenal nephropathy BUN 18, creatinine 1.66 Ordered urine lytes Continue the hydration Atrial flutter - recently diagnosed, heart rate controlled Continue Eliquis 5 mg b.i.d. Continue metoprolol 25 mg daily Continue amiodarone 200 mg daily Alcohol use disorder Ordered mild alcohol withdrawal protocol Ordered IV folic acid and thiamine Ordered drug screen - pending Social service and substance use navigator consulted Hypertension: Medication held due to NPO Bipolar disorder: Medication held due to NPO Code Status: Full code DVT prophylaxis: Eliquis Analgesia/sedation: Morphine Line/tube: PIV/ NG tube GI prophylaxis: Pantoprazole Nutrition: NPO Prognosis: Guarded Disposition: Continue medical treatment. Consult surgeon if conservative measures failure. Pt was seen and discussed with the resident team Pt with features of SBO appears to be improving with conservative measures, fluids hydration and pain control NG tube in situ Consider calling surgery so they see and follow with us. Date of Service: Dec 16, 2024 Billing Provider: IVAN KERNS MD, LUCAS, RES Dec 16, 2024 02:35 IVAN KERNS MD Dec 16, 2024 04:53
[2024-12-16 03:00] LABS: MEAN PLATELET VOLUME 7.0 FL (7.4-10.4); RED CELL DISTRIBUTION WIDTH 14.0 % (11.5-14.5)
[2024-12-16] MEDS ORDERED: dextrose 50%-water 50ml dispensing syringe IV PRN ×5 (03:05→22:05)
[2024-12-16] MEDS ORDERED: haloperidol lactate 5mg/ml inj IM PRN (03:05)
[2024-12-16 03:14] LABS: CREATININE 1.18 MG/DL (0.60-1.10); TOTAL CARBON DIOXIDE 25.2 MMOL/L (24-32); eCRCL 69 ML/MIN; eGFR 63 ML/MIN
[2024-12-16 03:37] LABS: OSMOLALITY UA 460.0 MOSM/K (50-1400)
[2024-12-16 03:39] LABS: CREATININE,URINE RANDOM 90.0 MG/DL; UA UREA RANDOM 745.0 MG/DL
[2024-12-16 03:43] LABS: LEUKOCYTE ESTERASE ,URINE NEGATIVE (Neg); NITRITES, URINE NEGATIVE (Neg); OCCULT BLOOD,URINE NEGATIVE (Neg); URINE AMPHETAMINE SCREEN NEGATIVE (Neg); URINE BARBITUATE SCREEN NEGATIVE (Neg); URINE BENZODIAZEPINES SCREEN NEGATIVE (Neg); URINE CANNABINOID SCREEN NEGATIVE (Neg); URINE COCAINE SCREEN NEGATIVE (Neg); URINE METHADONE SCREEN NEGATIVE (Neg); URINE OPIATE SCREEN NEGATIVE (Neg); URINE PHENCYCLIDINE SCREEN NEGATIVE (Neg)
[2024-12-16 03:46] LABS: UA COLLECTION TYPE NON-SPECIFIED
[2024-12-16 04:46] VITALS: BP 138/93; PULSE 101; RESP 18; TEMP 97.9; O2SAT 98
[2024-12-16 04:54] VITALS: RESP 18; O2SAT 98
--- NOTE | 2024-12-16 06:41 | ELECTROCARDIOGRAPH REPORT ---
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 Kelvin Lobo Measurements Intervals [place] Rate: 88 P: 0 WV: 0 QRS: 35 QRSD: 127 T: -2 QT: 387 QTc: 469 Interpretive Statements Atrial flutter Left bundle branch block Baseline wander in lead(s) V3 Electronically Signed On 12-16-2024 18:25:[address] Kelvin Lobo Please click the below link to view image of tracing.
[2024-12-16] MEDS ORDERED: heparin, porcine 5000 units/ml vial SQ SCH (08:00)
[2024-12-16] MEDS: K and/or MAG REPLACEMENT MC SCH (08:00)
--- NOTE | 2024-12-16 08:35 | ELECTROCARDIOGRAPH REPORT ---
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 ROWAN Cardozo Measurements Intervals [place] Rate: 109 P: 0 VA: 0 QRS: 18 QRSD: 92 T: 0 QT: 387 QTc: 522 Interpretive Statements Atrial flutter Borderline repolarization abnormality ST elevation, consider inferior injury Prolonged QT interval Electronically Signed On 12-16-2024 13:07:[address] ROWAN Cardozo Please click the below link to view image of tracing.
[2024-12-16] MEDS: docusate sod 100mg capsule PO SCH (09:13)
[2024-12-16] MEDS: thiamine 100mg/ml 2ml inj. IV SCH (09:13)
[2024-12-16] MEDS: folic acid 1mg/0.2ml inj IV SCH (09:13)
[2024-12-16] MEDS: metoprolol succinate 25mg (24-HOUR) SR. Tablet PO SCH (09:13)
[2024-12-16 10:00] VITALS: BP 137/89; PULSE 117; RESP 15; TEMP 97.6; O2SAT 100
[2024-12-16] MEDS ORDERED: DILT120C88 PO (10:48)
--- NOTE | 2024-12-16 14:02 | CARDIOLOGY REPORT ---
APPROVED REPORT EXAM: Comprehensive 2D, Doppler, and color-flow Echocardiogram. Patient Location: 400 Heart Rate: 119 bpm Rhythm: NSR Indications ATRIAL FIBRILLATION PREOP ECHO FOR BOWEL OBSTUCTION MYOCARDIAL INFARCTION [facility] SSRS REPORT DEVELOPER: None. PRIOR ECHOCARDIOGRAM: 09/28/2021 [facility] LVEF 60%; MCLVH, mod LAE; m AV SCLEROSIS; m MAC; m MR; mod TR; RVSP 48 mmHg 2D Dimensions RVDd 2.8 cm IVSd 1.2 (0.7-1.1cm) LVDd 4.9 cm PWd 1.1 (0.7-1.1cm) IVSs 1.4 (0.8-1.2cm) LVDs 3.0 (2.5-4.0cm) PWs 1.1 (0.8-1.2cm) LVOT Diameter 2.06 (1.8-2.4cm) LVEF(%) 65.0 (>50%) FS (%) 39.1 % SV 79.8 ml CO 13.2 L/min M-Mode Dimensions Left Atrium(MM) 3.92 (2.5-4.0cm) Aortic Root 3.51 (2.2-3.7cm) Aortic Cusp Exc 1.98 (1.5-2.0cm) Aortic Valve AoV Peak Romain. 132.2 cm/s AoV VTI 24.7 cm AO Peak GR. 7.0 mmHg AO Mean GR. 4 mmHg LVOT VTI 15.16 cm LVOT Peak Romain. 75.9 cm/s CURTIS (VTI) 2.05 cm2 Mitral Valve MV E Velocity 112.7 cm/s MV Peak Gr. 7 mmHg MV DECEL TIME 136 ms MV PHT 36 ms MVA (PHT) 6.11 cm2 MV OHxc063.7 cm/s Tricuspid Valve TR P. Velocity 304 cm/s RAP ESTIMATE 5 mmHg TR Peak Gr. 37 mmHg RVSP 42 mmHg LEFT VENTRICLE Normal LV size and function. Mild concentric hypertrophy. Overall LVEF is 65%. RIGHT VENTRICLE RV is normal size and function. ATRIA Left atrium is moderately dilated. AORTIC VALVE Trileaflet AV appears mildly sclerotic without stenosis. Zakiya insufficiency. MITRAL VALVE Mild mitral annular calcification. Mild regurgitation. TRICUSPID VALVE The tricuspid valve is normal in structure with moderate regurgitation. PULMONIC VALVE Pulmonic valve is not well visualized. GREAT VESSELS The aortic root is normal in size. PERICARDIUM Normal pericardium. No effusion. Conclusion Overall LVEF is 65%. Normal LV size and function. Mild concentric hypertrophy. RV is normal size and function. Trileaflet AV appears mildly sclerotic without stenosis. Zakiya insufficiency. Mild mitral annular calcification. Mild regurgitation. The tricuspid valve is normal in structure with moderate regurgitation. Pulmonic valve is not well visualized. Normal pericardium. No effusion. Normal pericardium. No effusion.
--- NOTE | 2024-12-16 14:24 | PROGRESS NOTE- Residence ---
Progress Note - Resident Providers to CC Resident Creating Document: ALIREZA HOPKINS RES ~ Antibiotic Timeout Antibiotic Ordered?: No Subjective Seen and examined the patient at bedside. He denied abdominal pain, nausea, abdominal distention, vomiting. Nasogastric tube collection is about less than 50 mL. Objective Vital Signs Date Time Temp Pulse Resp B/P (MAP) Pulse Ox O2 Delivery O2 Flow Rate FiO2 12/16/24 10:00 97.6 117 15 137/89 (105) 100 Room Air 12/16/24 07:20 0.0 Result Diagram: 12/16/24 0251 12/16/24 0251 General: Awake and Alert, oriented to time place person. Not in acute distress. With NG tube HEENT: Conjunctiva pink, Sclera clear, Mucus Membranes dry. Neck: Supple without masses and tenderness. Resp: Unlabored. Lungs clear to auscultation bilaterally. Heart: Iregular Rate and rhythm, normal S1 and S2 without murmur, rub or gallop. Abdomen: Soft. Nondistended, nontender. no guarding or rebound. Hypertympanic and increased bowel sounds. No organomegaly noted. Extremities: No cyanosis,clubbing or edema. Skin: Warm and Dry Psych: Mood and affect is normal Coagulation Studies Laboratory Tests Test 12/15/24 19:14 Prothrombin Time 10.8 SECONDS (9.0-12.0) INR International Normalized Ratio 1.1 INR Activated Partial Thromboplast Time 24 SECONDS (22-32) Coagulation Comments Advance Care Planning Advanced Care plannin - 30 Minutes Assessment Assessment This is a 59-year-old male patient admitted for severe abdominal pain, nausea, vomiting and decreased flatus Abdomen CT showed possible signs of small-bowel obstruction without complication. He was started on conservative management with IV normal saline and nasogastric decompression. Patient is clinically better but we consulted Dr. Hernandez Plan Plan Small-bowel obstruction Abdomen CT without contrast before admission: Fluid-filled and dilated loops of small bowel within the left upper quadrant. There are decompressed distal small bowel loops. CBC and CMP is unremarkable except serum creatinine of 1.18 Received 1 L of normal saline bolus and on 125 mL/hour lactated ringer On NPO and NG tube Zofran [address] Hernandez-recommended for CT abdomen with oral contrast. Ordered CT abdomen and pelvis with oral contrast with same day prep and we will follow up with the results Acute kidney injury Likely related to vasomotor nephropathy, dehydration Serum creatinine trended down to 1.18 FENA is 0.5 We will continue 125 mL of lactated ringer Atrial flutter - recently diagnosed, heart rate controlled Held Eliquis 5 mg b.i.d. in view of possible procedure and Eliquis is not administered on today Continue metoprolol 25 mg daily Continue amiodarone 200 mg daily and diltiazem 120 mg We will continue to monitor telemetry Alcohol use disorder On mild detox protocol folic acid, thiamine, Ativan p.r.n., Haldol p.r.n. UA is negative. Ethyl alcohol level is 52 on 12/15/2024 Social service and substance use navigator consulted Hypertension: Medication held due to NPO. Blood pressures are in 130s On hydralazine 10 mg q.6 H IV p.r.n. Bipolar disorder: Medication held due to NPO On venlafaxine, topiramate, Code Status: Full code Diet: NPO DVT prophylaxis: SCDs Analgesia/sedation: Morphine Line/tube: PIV/ NG tube GI prophylaxis: Pantoprazole Nutrition: NPO Prognosis: Guarded Alireza Hopkins IM resident, PGY 2 Date of Service: Dec 16, 2024 Billing Provider: DAYNA METZ MD,[facility], RES Dec 16, 2024 14:24
[2024-12-16] MEDS ORDERED: hydrALAZINE 20mg/ml inj. IV PRN (14:50)
[2024-12-16] MEDS ORDERED: diatr meglu/diatrizoate 30ml oral sol.-(3 dose) bottle PO SCH (15:00)
[2024-12-16] MEDS: diatr meglu/diatrizoate 30ml oral sol.-(3 dose) bottle PO SCH (15:25)
[2024-12-16 18:00] VITALS: BP 138/96; PULSE 110; RESP 13; TEMP 97.6; O2SAT 97
[2024-12-16] MEDS ORDERED: diazepam inj 5 MG/ML inj. IV PRN (19:20)
[2024-12-16 20:00] VITALS: RESP 14; O2SAT 97
[2024-12-16] MEDS ORDERED: glucagon, human recombinant 1mg kit SUBCUT PRN ×2 (21:30→22:05)
[2024-12-16 22:00] VITALS: BP 147/98; PULSE 111; RESP 14; TEMP 97; O2SAT 97
[2024-12-16] MEDS ORDERED: DEXTROSE 15 GM of carb/4 tabs (each vial/BOTTLE has 4 tablets) PO PRN ×2 (22:05)
--- NOTE | 2024-12-16 22:31 | RADIOLOGY REPORT ---
COMPUTERIZED TOMOGRAPHY ABDOMEN AND PELVIS WITHOUT CONTRAST REASON FOR EXAM: SBO COMPARISON: DI ABDOMEN,SINGLE VIEW(KUB) on DOS: 12/15/24, CT CT ABDOMEN PELVIS on DOS: 12/15/24 TECHNIQUE: Spiral scans were acquired from the diaphragm to the symphysis pubis without intravenous c ontrast administration. 2-D coronal and sagittal reformatted images were provided. Radiation optimiza tion: All CT scans at this facility use at least one of these dose optimization techniques: Automated exposure control mA and/or kV adjustment per patient size (includes targeted exams where dose is mat ched to clinical indication) or iterative reconstruction. Enteric contrast was administered. RADIATION DOSE: CTDI: 17 mGy DLP: 934 mGy-cm FINDINGS: There is minimal platelike atelectasis in bilateral lower lobes of the lungs. There is no pleural eff usion. There is no pericardial effusion. There is an enteric tube with the tip and side-hole coiled in the stomach. The spleen is not enlarged. The liver is normal in size and contour. Evaluation of the abdominal or kamryn is suboptimal in the absence of intravenous contrast. The gallbladder is surgically absent. The common bile duct is enlarged, likely secondary to cholecystectomy. Unenhanced appearance of the pancr eas is grossly unremarkable. There is a diverticulum off of the 1st part of the duodenum. The adrenal glands are grossly normal. The kidneys are similar in size. There is no hydronephrosis of either kid kalpesh. There is no renal, ureteral, or bladder calculus. The bladder is mildly thick-walled although i t is not well distended. There is no abdominal aortic aneurysm. There is no pathologic lymphadenopat hy by size criteria. The prostate and seminal vesicles are within normal limits. There is a small fat containing left inguinal hernia. There is a small amount of free fluid in the dependent pelvis. Ente flavia contrast has progressed as far as the sigmoid colon. There is no significant colonic stool burden . The appendix is normal. There is no distention of the small bowel to suggest obstruction. No acute osseous abnormality is identified. IMPRESSION: No evidence of small or large bowel obstruction. Trace free fluid in the dependent pelvis of uncertain etiology. This is abnormal in a male patient. Normal appendix Similar appearance of distended common bile ducts, likely secondary to cholecystectomy.
[2024-12-17 06:00] VITALS: BP 156/95; PULSE 110; RESP 18; TEMP 97.9; O2SAT 97
[2024-12-17 06:57] LABS: MEAN PLATELET VOLUME 7.5 FL (7.4-10.4); RED CELL DISTRIBUTION WIDTH 14.0 % (11.5-14.5)
[2024-12-17 07:28] LABS: INR 1.1 INR
[2024-12-17 07:55] LABS: CREATININE 1.01 MG/DL (0.60-1.10); PHOSPHORUS 2.1 MG/DL (2.3-4.5); TOTAL CARBON DIOXIDE 26.2 MMOL/L (24-32); eCRCL 80 ML/MIN; eGFR 75 ML/MIN
[2024-12-17] MEDS ORDERED: sodium phosphate inj. 30 MMOL in dextrose 5%-water 250 ML IV PRN (08:05)
[2024-12-17] MEDS ORDERED: sodium phosphate inj. 15 MMOL in dextrose 5%-water 250 ML IV PRN (08:05)
[2024-12-17] MEDS: potassium Cl 20 mEq SR tablet PO PRN (09:35)
[2024-12-17] MEDS: cholecalciferol (vitamin D3) 1,000 unit (25mcg) tablet PO SCH (09:35)
[2024-12-17] MEDS: diltiazem CD 120mg capsule (once-daily) PO SCH (09:36)
[2024-12-17] MEDS: venlafaxine XR 75mg capsule (Q24H) PO SCH (09:36)
[2024-12-17 10:00] VITALS: BP 170/115; PULSE 129; RESP 18; TEMP 97.2; O2SAT 94
[2024-12-17] MEDS: metoclopramide 5 mg/ml inj IV ONE (10:52)
[2024-12-17 11:00] VITALS: BP 138/109; PULSE 111
--- NOTE | 2024-12-17 13:12 | PROGRESS NOTE ---
Progress Note ID Providers to CC ~ Progress Note Progress Note: pt seen-ct neg for sbo/clamp ng-start clears if tolerated ALEXANDRA SMALL MD Dec 17, 2024 13:12
--- NOTE | 2024-12-17 13:30 | PROGRESS NOTE- Residence ---
Progress Note - Resident Providers to CC Resident Creating Document: BENITOMICAH BLISSLORENA LISA ~ Antibiotic Timeout Antibiotic Ordered?: No Subjective Seen and examined the patient at bedside. He denied any new onset of abdominal pain, nausea, vomiting, abdominal distention. He is tolerating the clear liquid diet. He had not had the bowel movement so far but passing the gas. Objective Vital Signs Date Time Temp Pulse Resp B/P (MAP) Pulse Ox O2 Delivery O2 Flow Rate FiO2 12/17/24 11:00 111 138/109 (119) 12/17/24 10:00 97.2 18 94 Room Air 12/16/24 20:00 0.0 Result Diagram: 12/17/2462112/17/24621 General: Awake and Alert, oriented to time place person. Not in acute distress. With NG tube HEENT: Conjunctiva pink, Sclera clear, Mucus Membranes dry. Neck: Supple without masses and tenderness. Resp: Unlabored. Lungs clear to auscultation bilaterally. Heart: Iregular Rate and rhythm, normal S1 and S2 without murmur, rub or gallop. Abdomen: Soft. Nondistended, nontender. no guarding or rebound. Increased bowel sounds. No organomegaly noted. Extremities: No cyanosis,clubbing or edema. Skin: Warm and Dry Psych: Mood and affect is normal Coagulation Studies Laboratory Tests Test 12/15/24 19:14 12/17/24 06:22 Activated Partial Thromboplast Time 24 SECONDS (22-32) Prothrombin Time 10.9 SECONDS (9.0-12.0) INR International Normalized Ratio 1.1 INR Coagulation Comments Advance Care Planning Advanced Care plannin - 30 Minutes Assessment Assessment This is a 59-year-old male patient admitted for severe abdominal pain, nausea, vomiting and decreased flatus Abdomen CT showed possible signs of small-bowel obstruction without complication. He was started on conservative management with IV normal saline and nasogastric decompression. Patient is clinically better but we consulted Dr. Hernandez Plan Plan Small-bowel obstruction, resolving Abdomen CT without contrast before admission: Fluid-filled and dilated loops of small bowel within the left upper quadrant. There are decompressed distal small bowel loops. CBC and CMP is unremarkable except serum creatinine of 1.18 Received 1 L of normal saline bolus and on 125 mL/hour lactated ringer On NPO and NG tube Zofran [address] Hernandez-recommended for CT abdomen with oral contrast. CT abdomen pelvis with oral contrast to rule out bowel obstruction On clear liquid diet if tolerated per Dr. Hernandez and we can clamp the NG tube if less than 150 mL in 24 hour. Acute kidney injury Likely related to vasomotor nephropathy, dehydration Hypophosphatemia Serum creatinine trended down to 1.18 FENA is 0.5 We will continue 125 mL of lactated ringer On phosphorus replacement protocol Atrial flutter - recently diagnosed, heart rate controlled Eliquis is on hold Continue metoprolol 25 mg daily Continue amiodarone 200 mg daily and diltiazem 120 mg We will continue to monitor telemetry Alcohol use disorder On mild detox protocol folic acid, thiamine, Ativan p.r.n., Haldol p.r.n. UA is negative. Ethyl alcohol level is 52 on 12/15/2024 Social service and substance use navigator consulted and we will appreciate the recommendation Hypertension: Medication held due to NPO. Blood pressures are in 130s On hydralazine 10 mg q.6 H IV p.r.n. Bipolar disorder: Continue venlafaxine, topiramate Code Status: Full code Diet: Clear liquid diet DVT prophylaxis: SCDs Analgesia/sedation: Morphine Line/tube: PIV/ NG tube GI prophylaxis: Pantoprazole Prognosis: Guarded Disposition: Likely discharge in a.m. [facility], PGY 2 Date of Service: Dec 17, 2024 Billing Provider[facility] Dec 17, 2024 13:30
[2024-12-17 18:00] VITALS: BP 166/110; PULSE 105; RESP 12; TEMP 97.2; O2SAT 98
[2024-12-17] MEDS ORDERED: NIRMATRELVIR/RITONAVIR 300/100mg - 1 EACH TAB.DS.PK PO SCH (20:00)
[2024-12-17 22:00] VITALS: BP 158/110; PULSE 110; RESP 12; TEMP 97.1; O2SAT 96
[2024-12-18 05:51] LABS: MEAN PLATELET VOLUME 7.1 FL (7.4-10.4); RED CELL DISTRIBUTION WIDTH 13.6 % (11.5-14.5)
[2024-12-18 05:52] LABS: INR 1.0 INR
[2024-12-18 06:00] VITALS: BP 166/89; PULSE 115; RESP 15; TEMP 97.8; O2SAT 93
[2024-12-18 06:05] LABS: CREATININE 0.96 MG/DL (0.60-1.10); PHOSPHORUS 2.3 MG/DL (2.3-4.5); TOTAL CARBON DIOXIDE 26.6 MMOL/L (24-32); eCRCL 84 ML/MIN; eGFR 80 ML/MIN
[2024-12-18] MEDS: lansoprazole 15mg solutab PO SCH (08:09)
[2024-12-18] MEDS ORDERED: PANT-47 PO (10:15)
[2024-12-18] MEDS ORDERED: MULT-25 PO (10:15)
[2024-12-18] MEDS ORDERED: THIA50TA10 PO (10:15)
[2024-12-18 11:00] VITALS: BP 128/98; PULSE 118; RESP 17; O2SAT 98
[2024-12-18 11:03] VITALS: BP_SYST 128; PULSE 118
[2024-12-18] MEDS: hydrALAZINE 20mg/ml inj. IV ONE (11:03)
--- NOTE | 2024-12-18 17:45 | DISCHARGE SUMMARY-Residence ---
Discharge Summary Providers to CC Resident Creating Document: ALIREZA HOPKINS RES ~ Discharge Summary Admission Diagnosis: SBO Hospital Course DATE OF ADMISSION: DATE OF DISCHARGE: Condition on DC: Stable Date of Service: Dec 18, 2024 Billing Provider: DAYNA METZ MD, VENKATESH, LORENA Dec 18, 2024 17:45
== END 2024-12-18 14:25 | disposition home or self-care (01) | DRG 247 ==
LOC: ER 18:46 → ED HOLD 22:49 → EDBEDREQ 12-16 04:19 → ORTHO 4S 12-16 04:37
PROVIDERS: ADMIT Internal Medicine; ATTEND Family Medicine
PROC: 0D9670Z Drainage of Stomach with Drainage Device, Via Natural or Artificial Opening (ICD-10-PCS; principal; 2024-12-16)
DX: K56.609 Unspecified intestinal obstruction, unspecified as to partial versus complete obstruction (principal); N17.0 Acute kidney failure with tubular necrosis; I48.92 Unspecified atrial flutter; E78.00 Pure hypercholesterolemia, unspecified; E87.6 Hypokalemia; F10.129 Alcohol abuse with intoxication, unspecified; F31.9 Bipolar disorder, unspecified; E86.0 Dehydration; E83.39 Other disorders of phosphorus metabolism; I25.2 Old myocardial infarction; Z79.01 Long term (current) use of anticoagulants; Z88.1 Allergy status to other antibiotic agents; Z90.49 Acquired absence of other specified parts of digestive tract; Z88.8 Allergy status to other drugs, medicaments and biological substances; Z79.899 Other long term (current) drug therapy
CPT/HCPCS: 36415; 71045; 74018; 74176; 80048; 80053; 80061; 80076; 80305; 80320; 81003; 82150; 82570; 82948; 83036; 83605; 83690; 83735; 83880; 83935; 84100; 84133; 84300; 84439; 84443; 84484; 84540; 85025; 85610; 85651; 85730; 86140; 87040; 87081; 93005; 93306; 97116; 97161; 97530; 99285; G0378; J2270; J2405; J2470; J2765; J3411; J3480; J3490; J7030; J7120; Q9963